=== PATIENT | female | born 1970 | race Caucasian/White ===

== ENCOUNTER 2017-11-25 11:24 | Emergency (ER) | payer BC, OTHER ==
[2017-11-25] MEDS ORDERED: ORPHENADRINE 30 MG/ML 2 ML VIAL IVP STA (11:34)
[2017-11-25] MEDS ORDERED: KETOROLAC 30 MG/ML 1 ML VIAL IVP STA (11:34)
--- NOTE | 2017-11-25 11:38 | ED ---
Fall HPI - General Chief Complaint: Fall Stated Complaint: fall/back pain Time Seen by Provider: 11/25/17 11:24 Source: patient Mode of arrival: EMS - History of Present Illness Initial Comments: This is a 47-year-old female who states she slipped on steps over carpeted and landed on her buttock and slid down about 8 steps prior to admission no loss of consciousness she does not believe she had she struck her head that she does have a bit of a headache no neck pain just complains some midthoracic back pain and some upper lumbar pain. She has a prior history of spinal surgery in 2009. She was given IV fentanyl and route the pain was 10/10 and get somewhat better until arrival here. She was on a backboard with cervical immobilization. She denies a loss of function to her upper or lower extremities no abdominal pain no pelvic pain. MD Complaint: fall - Related Data Home Medications Medication Instructions Recorded Confirmed Empagliflozin [Jardiance] 10 mg PO QAM 11/25/17 11/25/17 Glucosamine/Chondr Rebolledo A Sod [Osteo 1 tab PO DAILY 11/25/17 11/25/17 Bi-Flex Caplet] Lisinopril-Hctz 10-12.5 mg 1 tab PO DAILY 11/25/17 11/25/17 [Zestoretic 10-12.5] Montelukast Sodium [Singulair] 10 mg PO HS 11/25/17 11/25/17 Multivitamins, Thera [Multivitamin 1 tab PO DAILY 11/25/17 11/25/17 (formulary)] sitaGLIPtin PHOS/metFORMIN HCL 1 tab PO BID 11/25/17 11/25/17 [Janumet 50-1,000 mg Tablet] Previous Rx's Medication Instructions Recorded Cyclobenzaprine [Flexeril] 10 mg PO TID #14 tab 11/25/17 Hydrocodone/Acetaminophen [[place] 1 each PO Q6HR PRN #20 tab 11/25/17 5-325] Ibuprofen 800 mg PO Q6HR PRN #20 tablet 11/25/17 predniSONE 20 mg PO BID #10 tab 11/25/17 Allergies Allergy/AdvReac Type Severity Reaction Status Date / Time No Known Allergies Allergy Verified 11/25/17 12:13 Review of Systems ROS Statement: Those systems with pertinent positive or pertinent negative responses have been documented in the HPI. ROS Other: All systems not noted in ROS Statement are negative. Past Medical History Past Medical History: Hypertension Additional Past Medical History / Comment(s): Pre diabetes History of Any Multi-Drug Resistant Organisms: None Reported Past Surgical History: Ablation, Back Surgery, Section, Cholecystectomy Past Psychological History: No Psychological Hx Reported Smoking Status: Never smoker Past Alcohol Use History: None Reported Past Drug Use History: None Reported General Exam - General Exam Comments Initial Comments: This is a well-developed well-nourished awake alert oriented 3 female she has a [place] Coma Scale of 15. She was immobilized on a backboard with cervical immobilization. Limitations: no limitations General appearance: alert Head exam: Present: atraumatic, normocephalic, normal inspection Eye exam: Present: normal appearance, PERRL, EOMI. Absent: scleral icterus, conjunctival injection, periorbital swelling ENT exam: Present: normal exam, mucous membranes moist Neck exam: Present: normal inspection. Absent: tenderness, meningismus, lymphadenopathy Respiratory exam: Present: normal lung sounds bilaterally. Absent: respiratory distress, wheezes, rales, rhonchi, stridor Cardiovascular Exam: Present: regular rate, normal rhythm, normal heart sounds. Absent: systolic murmur, diastolic murmur, rubs, gallop, clicks GI/Abdominal exam: Present: soft, normal bowel sounds, other (Obese abdomen). Absent: distended, tenderness, guarding, rebound, rigid, bruit, pulsatile mass, hernia Rectal exam: Present: deferred Extremities exam: Present: normal inspection, full ROM, normal capillary refill. Absent: tenderness, pedal edema, joint swelling, calf tenderness Back exam: Present: normal inspection, tenderness, muscle spasm, paraspinal tenderness, rash noted (No cervical spinous process tenderness or tenderness palpation of the paraspinous muscles however especially between his scapula and the upper lumbar spine. No step-off or crepitation.). Absent: CVA tenderness ( R), CVA tenderness (L), vertebral tenderness Neurological exam: Present: alert, oriented X3, CN II-XII intact Psychiatric exam: Present: normal affect, normal mood Skin exam: Present: warm, dry, intact, normal color. Absent: rash Course Vital Signs 11/25/17 11/25/17 11:25 12:43 Temperature 97.8 F Pulse Rate 103 H 90 Respiratory 22 16 Rate Blood Pressure 143/80 137/76 O2 Sat by Pulse 97 98 Oximetry Medical Decision Making - Medical Decision Making Patient is finally get some relief from her pain would like to be sent home with oral medication she has no new findings and doesn't fact feel better. She is a follow-up with her family doctor or Dr. Mason and return when necessary - Radiology Data Radiology results: report reviewed (I did review the imaging and reports evidence of degenerative changes but no acute findings.), image reviewed Disposition Clinical Impression: Fall, Thoracic myofascial strain, Lumbar strain Disposition: HOME SELF-CARE Condition: Good Instructions: Low Back Strain (ED), Thoracic Back Strain (ED) Prescriptions: Cyclobenzaprine [Flexeril] 10 mg PO TID #14 tab Hydrocodone/Acetaminophen [[place] 5-325] 1 each PO Q6HR PRN #20 tab PRN Reason: Pain Ibuprofen 800 mg PO Q6HR PRN #20 tablet PRN Reason: Pain predniSONE 20 mg PO BID #10 tab Referrals: Ashley Riggs MD [Primary Care Provider] - 1-2 days
--- NOTE | 2017-11-25 13:08 | CT ---
EXAMINATION TYPE: CT thor lumbar spine wo con DATE OF EXAM: 11/25/2017 COMPARISON: NONE HISTORY: Patient complains of mid to low back pain post fall down stairs today. CT DLP: 1197 mGycm Automated exposure control for dose reduction was used. FINDINGS: Visualized portions of the lungs are clear. There is no significant pleural fluid. There is a small hiatal hernia. Prevertebral soft tissues are otherwise unremarkable. There is been a previous interpedicular fusion at L5-S1. There is a grade 1 spondylolisthesis of L5 o n S1. There is mild wedging of the T11 and T12 vertebral bodies. This appears chronic. No acute fracture is seen. There is hypertrophic spondylosis and spondylosis deformans within the dorsal spine and upper lumbar spine. No acute fracture is seen. IMPRESSION: 1. NO ACUTE OSSEOUS LESION. 2. POSTSURGICAL CHANGE. 3. SMALL HIATAL HERNIA. 4. MILD WEDGING OF THE T11 AND T12 VERTEBRAL BODIES WHICH APPEARS CHRONIC.
[2017-11-25] MEDS ORDERED: MORPHINE SULFATE 4 MG/ML SYRINGE IVP STA (13:14)
[2017-11-25] MEDS ORDERED: methylPREDNISolone SOD SUCCI 125 MG/2 ML VIAL IV STA (13:15)
[2017-11-25 14:07] VITALS: BP 123/63; PULSE 105; RESP 18; TEMP 98
== END 2017-11-25 14:05 | disposition home or self-care (01) ==
LOC: EC 11:24
DX: S29.012A Strain of muscle and tendon of back wall of thorax, initial encounter (principal); S39.012A Strain of muscle, fascia and tendon of lower back, initial encounter; R21 Rash and other nonspecific skin eruption; R40.2412 Glasgow coma scale score 13-15, at arrival to emergency department; I10 Essential (primary) hypertension; Z98.890 Other specified postprocedural states; Z79.84 Long term (current) use of oral hypoglycemic drugs; Z79.899 Other long term (current) drug therapy; W10.9XXA Fall (on) (from) unspecified stairs and steps, initial encounter
CPT/HCPCS: 99284; 96374; 96375 ×3; 72128; 72131; J2270; J2360; J2930; J1885

== ENCOUNTER 2018-12-09 11:56 | Observation (INO) | payer BC ==
[2018-12-09] MEDS ORDERED: HYDROmorphone 1 MG/ML 1 ML SYRINGE IVP STA (13:11)
[2018-12-09] MEDS ORDERED: KETOROLAC 30 MG/ML 1 ML VIAL IVP STA (13:11)
[2018-12-09] MEDS ORDERED: ONDANSETRON 4 MG/2 ML VIAL IVP STA ×2 (13:11→14:58)
[2018-12-09] MEDS ORDERED: SODIUM CHLORIDE 0.9% 2,000 ML IV ONE (13:27)
[2018-12-09 13:37] LABS: ALT 52 U/L (9-52); AST 62 U/L (14-36); Albumin 3.7 g/dL (3.5-5.0); Alkaline Phosphatase 86 U/L (38-126); Amylase 79 U/L (30-110); Anion Gap 7 mmol/L; Blood Urea Nitrogen 12 mg/dL (7-17); Calcium 9.2 mg/dL (8.4-10.2); Carbon Dioxide 25 mmol/L (22-30); Chloride 108 mmol/L (98-107); Glucose 174 mg/dL (74-99); Lipase 479 U/L (23-300); Sodium 140 mmol/L (137-145); Total Bilirubin 1.6 mg/dL (0.2-1.3); Total Protein 7.4 g/dL (6.3-8.2)
[2018-12-09 13:41] LABS: Basophils % (A) 1 %; Eosinophils # (A) 0.2 k/uL (0-0.7); Eosinophils % (A) 4 %; HCT 38.4 % (34.0-46.0); HGB 12.8 gm/dL (11.4-16.0); Lymphocytes # (A) 1.1 k/uL (1.0-4.8); Lymphocytes % (A) 22 %; MCH 30.8 pg (25.0-35.0); MCHC 33.3 g/dL (31.0-37.0); MCV 92.7 fL (80.0-100.0); Mean Platelet Volume 8.2; Monocytes # (A) 0.3 k/uL (0-1.0); Monocytes % (A) 6 %; Neutrophils # (A) 3.2 k/uL (1.3-7.7); Neutrophils % (A) 64 %; Platelet Count 116 k/uL (150-450); RBC 4.15 m/uL (3.80-5.40); RDW 14.1 % (11.5-15.5); WBC 4.9 k/uL (3.8-10.6)
--- NOTE | 2018-12-09 13:47 | ED ---
Abdominal Pain HPI - General Source: patient, RN notes reviewed, old records reviewed Mode of arrival: ambulatory Limitations: no limitations <Asha Brooke - Last Filed: 12/09/18 16:07> <Davian Hale - Last Filed: 12/09/18 16:20> - General Chief Complaint: Abdominal Pain Stated Complaint: abdominal pain Time Seen by Provider: 12/09/18 12:17 - History of Present Illness Initial Comments: This patient's a 48-year-old female presents emergency Department chief complaint of diffuse abdominal pain, distention, nausea for the past 3 days. She reports symptoms woke her up on Sunday evening. Surgical history includes cholecystectomy, C-sections, uterine ablation. Patient poor she feels some lower abdominal pain, just started with. Patient states that she sees Dr. Avery HERB DOCTOR. No vomiting. (Asha Brooke) - Related Data Home Medications Medication Instructions Recorded Confirmed Empagliflozin [Jardiance] 10 mg PO QAM 11/25/17 12/09/18 Glucosamine/Chondr Rebolledo A Sod [Osteo 1 tab PO DAILY 11/25/17 12/09/18 Bi-Flex Caplet] Lisinopril-Hctz 10-12.5 mg 1 tab PO DAILY 11/25/17 12/09/18 [Zestoretic 10-12.5] Montelukast Sodium [Singulair] 10 mg PO HS 11/25/17 12/09/18 Cyanocobalamin (Vitamin B-12) 1,000 mcg PO HS 12/09/18 12/09/18 [Vitamin B-12] Liraglutide [Victoza 3-Luis] 1.2 mg SQ DAILY 12/09/18 12/09/18 Magnesium Oxide [Mag-Ox] 250 mg PO HS 12/09/18 12/09/18 Melatonin 10 mg PO HS 12/09/18 12/09/18 Milk Thistle 150 mg PO HS 12/09/18 12/09/18 Potassium 99 mg PO HS 12/09/18 12/09/18 metFORMIN HCL 1,000 mg PO BID 12/09/18 12/09/18 Allergies Allergy/AdvReac Type Severity Reaction Status Date / Time brompheniramine AdvReac Rapid Verified 12/09/18 12:19 [From Dimetapp Heart Rate (brompheniramine-PPA)] diphenhydramine AdvReac Rapid Verified 12/09/18 12:19 [From Benadryl] Heart Rate phenylpropanolamine AdvReac Rapid Verified 12/09/18 12:19 [From Dimetapp Heart Rate (brompheniramine-PPA)] Review of Systems ROS Other: All systems not noted in ROS Statement are negative. <Asha Brooke - Last Filed: 12/09/18 16:07> ROS Other: All systems not noted in ROS Statement are negative. <Davian Hale - Last Filed: 12/09/18 16:20> ROS Statement: Those systems with pertinent positive or pertinent negative responses have been documented in the HPI. Past Medical History Past Medical History: Hypertension Additional Past Medical History / Comment(s): Pre diabetes History of Any Multi-Drug Resistant Organisms: None Reported Past Surgical History: Ablation, Back Surgery, Section, Cholecystectomy Past Psychological History: No Psychological Hx Reported Smoking Status: Never smoker Past Alcohol Use History: None Reported Past Drug Use History: None Reported <Asha Brooke - Last Filed: 12/09/18 16:07> General Exam Limitations: no limitations General appearance: alert, in no apparent distress Head exam: Present: atraumatic, normocephalic, normal inspection Eye exam: Present: normal appearance, PERRL, EOMI. Absent: scleral icterus, conjunctival injection, periorbital swelling ENT exam: Present: normal exam, mucous membranes moist Neck exam: Present: normal inspection. Absent: tenderness, meningismus, lymphadenopathy Respiratory exam: Present: normal lung sounds bilaterally. Absent: respiratory distress, wheezes, rales, rhonchi, stridor Cardiovascular Exam: Present: regular rate GI/Abdominal exam: Present: distended, tenderness (Diffuse distention and tenderness over her entire abdomen.), normal bowel sounds. Absent: soft, guarding, rebound, rigid Extremities exam: Present: normal inspection, full ROM, normal capillary refill. Absent: tenderness, pedal edema, joint swelling, calf tenderness Back exam: Present: normal inspection Neurological exam: Present: alert, oriented X3, CN II-XII intact Psychiatric exam: Present: normal affect, normal mood Skin exam: Present: warm, dry, intact, normal color. Absent: rash <Asha Brooke - Last Filed: 12/09/18 16:07> <Davian Hale - Last Filed: 12/09/18 16:20> - General Exam Comments Initial Comments: 48-year-old female. Alert and oriented. No distress. (Asha rBooke) Vital Signs 12/09/18 12/09/18 12/09/18 11:59 13:00 13:30 Temperature 98.7 F Pulse Rate 103 H Respiratory 18 Rate Blood Pressure 130/78 115/67 107/67 O2 Sat by Pulse 97 97 96 Oximetry 12/09/18 12/09/18 12/09/18 14:00 14:30 15:00 Temperature Pulse Rate Respiratory Rate Blood Pressure 114/58 105/67 100/54 O2 Sat by Pulse 98 97 Oximetry 12/09/18 15:30 Temperature Pulse Rate Respiratory Rate Blood Pressure 107/65 O2 Sat by Pulse 97 Oximetry Medical Decision Making - Lab Data Result diagrams: 12/09/18 12:25 12/09/18 12:25 - Radiology Data Radiology results: report reviewed <Asha Brooke - Last Filed: 12/09/18 16:07> - Lab Data Result diagrams: 12/09/18 12:25 12/09/18 12:25 <Davian Hale - Last Filed: 12/09/18 16:20> - Medical Decision Making Patient is a 48-year-old female with 4 days of diffuse abdominal pain and distention. Patient has diffuse lower abdominal pain. She was given IV fluids labwork obtained. Patient's lab work was reviewed and relatively unremarkable. CT of the pelvis was completed and there is evidence of suspected cirrhosis with portal hypertension and splenomegaly. She denies any significant alcohol use. Is also noted 6.2 C ovarian lesion. Follow-up ultrasound. She does see Dr. Harris. I did discuss the family and Patient that this is concerned for possibility of any ovarian mass. She will be admitted with consult to GI and OB /IC DESIGN MANAGER. (Asha Brooke) Patient reevaluated by myself, Dr. Hale. Patient resting comfortably in bed. Patient does have mild distention/ascites with moderate tenderness of the lower abdomen. Patient updated on results and plan. Case was discussed in detail with Dr. Marroquin, who will admit covering for Dr. Riggs. Consults will be placed for GI, HERB DOCTOR, and oncology. Case was also discussed in detail with Dr. Barraza, who will consult. (Davian Hale) - Lab Data Lab Results 12/09/18 12/09/18 12/09/18 Range/Units 12:25 12:25 12:25 WBC 4.9 (3.8-10.6) k/uL RBC 4.15 (3.80-5.40) m/uL Hgb 12.8 (11.4-16.0) gm/dL Hct 38.4 (34.0-46.0) % MCV 92.7 (80.0-100.0) fL MCH 30.8 (25.0-35.0) pg MCHC 33.3 (31.0-37.0) g/dL RDW 14.1 (11.5-15.5) % Plt Count 116 L (150-450) k/uL Neutrophils % 64 % Lymphocytes % 22 % Monocytes % 6 % Eosinophils % 4 % Basophils % 1 % Neutrophils # 3.2 (1.3-7.7) k/uL Lymphocytes # 1.1 (1.0-4.8) k/uL Monocytes # 0.3 (0-1.0) k/uL Eosinophils # 0.2 (0-0.7) k/uL Basophils # 0.0 (0-0.2) k/uL PT 10.4 (9.0-12.0) sec INR 1.0 (<1.2) APTT 25.5 (22.0-30.0) sec Sodium 140 (137-145) mmol/L Potassium 4.3 (3.5-5.1) mmol/L Chloride 108 H (98-107) mmol/L Carbon Dioxide 25 (22-30) mmol/L Anion Gap 7 mmol/L BUN 12 (7-17) mg/dL Creatinine 0.55 (0.52-1.04) mg/dL Est GFR (CKD-EPI)AfAm >90 (>60 ml/min/1.73 sqM) Est GFR (CKD-EPI)NonAf >90 (>60 ml/min/1.73 sqM) Glucose 174 H (74-99) mg/dL Calcium 9.2 (8.4-10.2) mg/dL Total Bilirubin 1.6 H (0.2-1.3) mg/dL AST 62 H (14-36) U/L ALT 52 (9-52) U/L Alkaline Phosphatase 86 (38-126) U/L Total Protein 7.4 (6.3-8.2) g/dL Albumin 3.7 (3.5-5.0) g/dL Amylase 79 (30-110) U/L Lipase 479 H (23-300) U/L Urine Color Urine Appearance (Clear) Urine pH (5.0-8.0) Ur Specific [place] (1.001-1.035) Urine Protein (Negative) Urine Glucose (UA) (Negative) Urine Ketones (Negative) Urine Blood (Negative) Urine Nitrite (Negative) Urine Bilirubin (Negative) Urine Urobilinogen (<2.0) mg/dL Ur Leukocyte Esterase (Negative) Urine RBC (0-5) /hpf Urine WBC (0-5) /hpf Ur Squamous Epith Cells (0-4) /hpf Urine Mucus (None) /hpf 12/09/18 Range/Units 15:16 WBC (3.8-10.6) k/uL RBC (3.80-5.40) m/uL Hgb (11.4-16.0) gm/dL Hct (34.0-46.0) % MCV (80.0-100.0) fL MCH (25.0-35.0) pg MCHC (31.0-37.0) g/dL RDW (11.5-15.5) % Plt Count (150-450) k/uL Neutrophils % % Lymphocytes % % Monocytes % % Eosinophils % % Basophils % % Neutrophils # (1.3-7.7) k/uL Lymphocytes # (1.0-4.8) k/uL Monocytes # (0-1.0) k/uL Eosinophils # (0-0.7) k/uL Basophils # (0-0.2) k/uL PT (9.0-12.0) sec INR (<1.2) APTT (22.0-30.0) sec Sodium (137-145) mmol/L Potassium (3.5-5.1) mmol/L Chloride (98-107) mmol/L Carbon Dioxide (22-30) mmol/L Anion Gap mmol/L BUN (7-17) mg/dL Creatinine (0.52-1.04) mg/dL Est GFR (CKD-EPI)AfAm (>60 ml/min/1.73 sqM) Est GFR (CKD-EPI)NonAf (>60 ml/min/1.73 sqM) Glucose (74-99) mg/dL Calcium (8.4-10.2) mg/dL Total Bilirubin (0.2-1.3) mg/dL AST (14-36) U/L ALT (9-52) U/L Alkaline Phosphatase (38-126) U/L Total Protein (6.3-8.2) g/dL Albumin (3.5-5.0) g/dL Amylase (30-110) U/L Lipase (23-300) U/L Urine Color Yellow Urine Appearance Clear (Clear) Urine pH 6.0 (5.0-8.0) Ur Specific [place] 1.050 H (1.001-1.035) Urine Protein Negative (Negative) Urine Glucose (UA) 4+ H (Negative) Urine Ketones Negative (Negative) Urine Blood Negative (Negative) Urine Nitrite Negative (Negative) Urine Bilirubin Negative (Negative) Urine Urobilinogen 3.0 (<2.0) mg/dL Ur Leukocyte Esterase Small H (Negative) Urine RBC 12 H (0-5) /hpf Urine WBC 4 (0-5) /hpf Ur Squamous Epith Cells 6 H (0-4) /hpf Urine Mucus Rare H (None) /hpf - Radiology Data CT shows suspect cirrhosis with underlying portal hypertension and splenomegaly. Minimal abdominal ascites is noted. There is a 6.2 cm right ovarian adnexal lesion following up with ultrasound formed. (Asha Brooke) Disposition Is patient prescribed a controlled substance at d/c from ED?: No Time of Disposition: 16:10 <Asha Brooke - Last Filed: 12/09/18 16:07> <Davian Hale - Last Filed: 12/09/18 16:20> Clinical Impression: Ovarian mass, right, Ascites, Portal hypertension, Splenomegaly Disposition: ADMITTED IP TO THIS HOSP Condition: Stable Referrals: Ashley Riggs MD [Primary Care Provider] - 1-2 days
[2018-12-09 13:48] LABS: Partial Thromboplastin Time 25.5 sec (22.0-30.0); Prothrombin Time 10.4 sec (9.0-12.0)
[2018-12-09 13:56] LABS: Potassium 4.3 mmol/L (3.5-5.1)
--- NOTE | 2018-12-09 14:35 | CT ---
EXAMINATION TYPE: CT abdomen pelvis w con DATE OF EXAM: 12/09/2018 HISTORY: Abdominal pain CT DLP: 2460.4mGycm Automated Exposure Control for Dose Reduction was Utilized. CONTRAST: CT scan of the abdomen and pelvis is performed without oral but with IV Contrast, patient injected wi th 100 ml mL of Isovue 300. Comparison: CT spine November 25, 2017. FINDINGS: LUNG BASES: No significant abnormality is appreciated. LIVER/GB: Cholecystectomy clips are present. Liver is lower limits of normal in size with lobulated p eripheral nodular contour. PANCREAS: No significant abnormality is seen. SPLEEN: Splenomegaly is seen measuring 19.0 cm long axis axial image 27. ADRENALS: No significant abnormality is seen. KIDNEYS: Some focal cortical scarring right kidney is present. There is symmetric cortical medullary uptake and excretion from both kidneys without hydronephrosis seen bilaterally. BOWEL: Evaluation bowel is suboptimal secondary to lack of enteric contrast. No suspicious small or l arge bowel dilatation is seen. UTERUS/ADNEXA: Anteverted uterus is seen. Right ovary is 6.2 cm oval low dense lesion with perhaps an terior solid nodularity. Left ovary is normal in size on axial image 70. Scattered pelvic phleboliths are noted. LYMPH NODES: No greater than 1cm abdominal or pelvic lymph nodes are appreciated. Prominent but subce ntimeter lymph nodes throughout the mesentery are seen with mild mesenteric edema most prominent near small bowel loop coronal image 44 in the mid to lower abdomen OSSEOUS STRUCTURES: Posterior fusion hardware L5-S1 level is redemonstrated with artificial disc mate rial. OTHER: Mild ascites left pericolic and infracolic gutter. Mild ascites superior to liver coronal imag e 42. IMPRESSION: 1. Suspect cirrhosis with underlying portal hypertension and splenomegaly is present, correlate clini shaquille. Mild to minimal abdominal ascites is noted as detailed above. 2. A 6.2 cm right ovarian/adnexal lesion, follow-up pelvic ultrasound can be performed to better eval uate and characterize.
[2018-12-09 15:51] LABS: Appearance,Urine Clear (Clear); Bilirubin,Urine Negative (Negative); Blood,Urine Negative (Negative); Color,Urine Yellow; Glucose,Urine (UA) 4+ (Negative); Ketones,Urine Negative (Negative); Leukocyte Esterase,Urine Small (Negative); Mucus,Urine Rare /hpf; Nitrite,Urine Negative (Negative); Protein,Urine Negative (Negative); RBC,Urine 12 /hpf (0-5); Squamous Epithelial Cell,Urine 6 /hpf (0-4); WBC,Urine 4 /hpf (0-5)
[2018-12-09] MEDS ORDERED: NALOXONE 0.4 MG/ML 1 ML VIAL IV PRN (16:10)
[2018-12-09] MEDS ORDERED: IBUPROFEN 400 MG TAB PO PRN (16:10)
[2018-12-09] MEDS ORDERED: HYDROmorphone 1 MG/ML 1 ML SYRINGE IVP PRN (16:10)
[2018-12-09] MEDS ORDERED: ONDANSETRON 4 MG/2 ML VIAL IVP PRN (16:10)
[2018-12-09] MEDS ORDERED: ACETAMINOPHEN TAB 325 MG TAB PO PRN (16:10)
[2018-12-09] MEDS ORDERED: Acetaminophen-Codeine 300-30mg TAB PO PRN (16:10)
[2018-12-09] MEDS: SODIUM CHLORIDE 0.9% 1,000 ML IV SCH (16:47)
--- NOTE | 2018-12-09 17:01 | US ---
EXAMINATION TYPE: US transvaginal DATE OF EXAM: 12/09/2018 COMPARISON: NONE CLINICAL HISTORY: Pain. RLQ pain TECHNIQUE: TA/TV. Date of LMP: ablation EXAM MEASUREMENTS: Uterus: 12.6 x 5.4 x 5.2 cm Endometrial Stripe: 0.7 cm Right Ovary: 5.2 x 6.4 x 6.7 cm Left Ovary: 3.8 x 2.7 x 3.0 cm Large body habitus that made TV imaging difficult, TA used to supplement study. 1. Uterus: Anteverted wnl 2. Endometrium: wnl 3. Right Ovary: only seen transabdominally, 5.5cm complex lesion seen, unable to truly assess blood flow, difficult penetrating due to patient size. 4. Left Ovary: 2.2cm cystic area seen Spectral, color and waveform doppler imaging shows good arterial and venous flow within the left ov felix, there is no evidence for ovarian torsion on the left. 5. Bilateral Adnexa: wnl 6. Posterior cul-de-sac: wnl IMPRESSION: Complex large cyst on the right ovary. Follow-up is recommended to show stability or jaime ring. Normal uterus and endometrium. No evidence of ovarian torsion.
[2018-12-09 17:22] VITALS: BMI 47.0
[2018-12-09] MEDS ORDERED: ALPRAZolam 0.25 MG TAB PO PRN (18:03)
[2018-12-09] MEDS ORDERED: HYDROcodone/APAP 5-325MG 1 EACH TAB PO PRN (18:03)
[2018-12-09] MEDS ORDERED: TEMAZEPAM 15 MG CAP PO PRN (18:03)
[2018-12-09] MEDS: KETOROLAC 30 MG/ML 1 ML VIAL IVP PRN (19:12)
--- NOTE | 2018-12-09 19:21 | HP ---
HISTORY AND PHYSICAL DATE OF SERVICE: 12/09/2018 CHIEF COMPLAINT: Abdominal pain. HISTORY OF PRESENT ILLNESS: This 48-year-old woman with a past medical history of diabetes, hypertension, sleep apnea, history of prediabetes, history of back surgery being followed by Dr. Riggs in the outpatient setting apparently had a sudden onset of abdominal pain on Sunday at 1 o'clock. The abdominal pain is felt in the lower part of the chest radiating across without any other symptoms. Patient is rather constipated. Patient also had a fall on the ice earlier that day according to her. Because of increasing pain, patient presented to Dr. Riggs's office and subsequently sent to [facility] for further evaluation and treatment. Abdomen and pelvis CAT scan was done showed a 6.2 cm right ovarian adnexal mass and suspected cirrhosis with underlying portal hypertension and splenomegaly. Mild to minimal abdominal ascites was also noted. There is no history of fever, rigors or chills. No history of headache, loss of consciousness or seizures. The patient also had a pelvic transvaginal ultrasound which showed a 5.5 cm complex lesion was noted. Complex lesion was noted and the patient admitted for further evaluation. There is no history of fever, rigors. No history of headache, loss of consciousness. No history EtOH. No history of weight gain/weight loss. PAST MEDICAL: Diabetes, hypertension, sleep apnea, prediabetes, history of ablation, back surgeries and section and cholecystectomy. MEDICATIONS ARE: Home medications include: 1. Magnesium oxide 250 mg p.o. daily. 2. Vitamin B12 1000 mg daily. 3. Potassium 99 mg p.o. daily. 4. Milk thistle 150 mg q.h.s. 5. Melatonin 10 mg q.h.s. 6. Victoza 1.2 subcu daily. 7. Metformin 1000 mg p.o. b.i.d. 8. Singular 10 mg q.h.s. 9. Zestoretic 1 tablet p.o. daily. 10.Osteobioflex 1 tablet p.o. daily. 11.Jardiance 10 mg q.a.m. ALLERGIES: BROMPHENIRAMINE, DIPHENHYDRAMINE, AND PHENYLPROPANOLAMINE. FAMILY HISTORY: History of coronary artery disease, diabetes in the family. SOCIAL HISTORY: Previous history of smoking. No history of alcohol intake. REVIEW OF SYSTEMS: ENT: No diminished hearing or diminished vision. CARDIOVASCULAR: No angina or palpitations. RESPIRATORY: No cough. GI as mentioned earlier. : As mentioned earlier. NERVOUS SYSTEM: No numbness or weakness. ALLERGY/IMMUNOLOGY: No asthma or hayfever. MUSCULOSKELETAL as mentioned earlier. HEMATOLOGY/ONCOLOGY: No history of anemia. ENDOCRINE: Diabetes mellitus. CONSTITUTIONAL: As mentioned earlier. Dermatology: Negative. Rheumatology: Negative. Psychiatry: As mentioned earlier. PHYSICAL EXAMINATION: GENERAL: The patient is alert and oriented times three. VITAL SIGNS: Pulse 89, blood pressure 104/60, respiration 18, temperature 98 degrees, pulse ox 98% on room air. HEENT: Conjunctivae normal. Oral mucosa moist. NECK: Neck is no jugular venous distention. No carotid bruit. No lymph node enlargement. CARDIOVASCULAR: S1-S2. RESPIRATORY: Breath sounds diminished in the bases. No rhonchi. No crackles. ABDOMEN: Soft, obese, mild diffuse discomfort on palpation. Otherwise, no guarding, no rigidity. No mass palpable. Legs no edema. No swelling. NERVOUS SYSTEM: Higher functions as mentioned earlier. Moves all four extremities. No focal deficits. LYMPHATICS: No lymph nodes palpable in the neck, axilla or groin. Skin: No ulcer, rash or bleeding. JOINTS: No active deforming arthropathy. LABS: WBC 4.9. Platelets are 116. Chloride is 108. Glucose is 174. Total bilirubin is 1.6, AST is 62, lipase is 479. ASSESSMENT: 1. Abdominal pain for evaluation, possible ovarian mass, right ovarian mass. 2. Possible cirrhosis of liver with splenomegaly. 3. Increased amylase. 4. Increased total bilirubin with increased AST. 5. Diabetes mellitus type 2. 6. Thrombocytopenia. 7. Hypertension. 8. Sleep apnea. 9. History of ablation. 10.History of back pain. 11.History of section. RECOMMENDATIONS AND DISCUSSION: In this 48-year-old woman who presented with multiple complex medical issues, we will monitor the patient closely, continue the current medications, management and symptomatic treatment. Otherwise, at this time, we will repeat the labs. Monitor closely. The exact etiology of the ovarian mass is unknown at this time. We will consult Hematology/Oncology and as well as PAVING AND SURFACING LABOURER. Again there is no past history of hepatitis or other liver related issues. I would recommend hepatitis panel and repeat labs and continue to monitor. The CT scan was personally reviewed by me and the patient liver was lobulated, nodular contour was noted. Overall prognosis guarded because of multiple complex medical issues, which I discussed at length with the family and the patient and we will continue to monitor and proceed with consultations and further evaluations. Copy of dictation forwarded to Dr. Riggs, who is the primary physician. Resume the home medications. MMODL / IJN: [id number] / MTDD
[2018-12-09 19:29] LABS: Basophils % (A) 0 %; Eosinophils # (A) 0.1 k/uL (0-0.7); Eosinophils % (A) 3 %; HCT 36.4 % (34.0-46.0); HGB 11.7 gm/dL (11.4-16.0); Lymphocytes # (A) 0.7 k/uL (1.0-4.8); Lymphocytes % (A) 18 %; MCH 30.6 pg (25.0-35.0); MCHC 32.2 g/dL (31.0-37.0); Mean Platelet Volume 6.7; Monocytes # (A) 0.2 k/uL (0-1.0); Monocytes % (A) 6 %; Neutrophils % (A) 72 %; RBC 3.83 m/uL (3.80-5.40); RDW 14.3 % (11.5-15.5); WBC 4.1 k/uL (3.8-10.6)
[2018-12-09 19:30] LABS: Platelet Count 85 k/uL (150-450)
[2018-12-09 19:34] LABS: Anion Gap 6 mmol/L; Blood Urea Nitrogen 12 mg/dL (7-17); Calcium 8.4 mg/dL (8.4-10.2); Carbon Dioxide 24 mmol/L (22-30); Chloride 108 mmol/L (98-107); Glucose 191 mg/dL (74-99); Potassium 4.1 mmol/L (3.5-5.1); Sodium 138 mmol/L (137-145)
[2018-12-09] MEDS: MAGNESIUM OXIDE 400 MG TAB PO SCH (20:37)
[2018-12-09] MEDS: HEPARIN SODIUM,PORCINE 5,000 UNIT/ML 1 ML VIAL SQ SCH (20:37)
[2018-12-09] MEDS: MONTELUKAST 10 MG TAB PO SCH (20:37)
[2018-12-09] MEDS: MELATONIN 5 MG TABLET PO SCH (20:37)
[2018-12-09] MEDS: HYDROmorphone 0.5 MG/0.5 ML SYRINGE IVP PRN (20:37)
[2018-12-09] MEDS: metFORMIN 500 MG TAB PO SCH (20:37)
[2018-12-09] MEDS ORDERED: NON-FORMULARY DRUG (Potassium [Potassium] 99 MG) PO SCH (21:00)
[2018-12-09 23:34] LABS: Hepatitis A Antibody IgM Non-Reactive (Non-Reactive); Hepatitis B Core IgM Non-Reactive (Non-Reactive)
[2018-12-10] MEDS: KETOROLAC 30 MG/ML 1 ML VIAL IVP PRN (01:39)
[2018-12-10] MEDS: HYDROmorphone 0.5 MG/0.5 ML SYRINGE IVP PRN (02:40)
[2018-12-10] MEDS: SODIUM CHLORIDE 0.9% 1,000 ML IV SCH (02:41)
[2018-12-10 04:23] LABS: Hemoglobin A1C 6.6 % (4.0-6.0)
[2018-12-10] MEDS: metFORMIN 500 MG TAB PO SCH ×2 (08:32→23:12)
[2018-12-10] MEDS: LISINOPRIL-HCTZ 10-12.5 MG 1 EACH TAB PO SCH (08:32)
[2018-12-10] MEDS: HEPARIN SODIUM,PORCINE 5,000 UNIT/ML 1 ML VIAL SQ SCH ×2 (08:34→23:13)
[2018-12-10] MEDS: EMPAGLIFLOZIN 10 MG PO SCH (08:47)
[2018-12-10] MEDS: LIRAGLUTIDE 1.2 MG SQ SCH (08:47)
[2018-12-10] MEDS ORDERED: PANTOPRAZOLE 40 MG/10 ML VIAL IV SCH (09:00)
[2018-12-10] MEDS ORDERED: NON-FORMULARY DRUG (Glucosamine/Chondr Su A Sod [Osteo Bi-Flex Caplet] 1 TAB) PO SCH (09:00)
--- NOTE | 2018-12-10 09:20 | P.OBCN ---
History of Present Illness Consult date: 12/10/18 Requesting physician: Matias Marroquin Reason for consult: pelvic mass, other (Abdominal pain) Chief complaint: Acute abdominal pain, 5+ centimeter right ovarian cyst History of present illness: The patient is a 48-year-old 3 para 2011 who presented to the emergency room department with onset of abdominal pain beginning acutely in the pelvis, specifically the right lower quadrant approximately 2 days prior to presentation. The pain that it initially begun on the right lower quadrant then spread more diffusely into the abdomen and left her with a sense of bloating and generalized discomfort. She did initially have some nausea and reports some short-term constipation with her last normal bowel movement being approximately 4 days ago. In the emergency room, she underwent computed tomography scan of the abdomen and pelvis which demonstrated a 6.2 cm complex right adnexal mass with some free fluid in the pericolic gutters and possible liver changes consistent with cirrhosis. Subsequent pelvic ultrasound confirmed a roughly 5+ centimeter right ovarian cyst of the mass was not clearly seen and, by report, was seen more effective with with transabdominal scanning then transvaginal. At this time, she continues to have some generalized discomfort and mild anorexia though she is tolerating regular diet. There is no further nausea. As the patient is known to our office, I reviewed a pelvic ultrasound performed in February 2018 at which time the findings in the pelvis were entirely benign with no evidence of any cystic structure or mass on the right ovary and only a simple follicle on the left ovary. The patient has additionally undergone endometrial ablation for menorrhagia and denies any symptoms of menopause to include hot flashes or night sweats. Given her ablation and essentially amenorrhea since that time, she is uncertain as to when her last menstrual period may have been. She reports that she does use condoms consistently for contraception as no permanent control is in place. Obstetrical history: 3 para 2011 with 2 term sections without complications. There was one early miscarriage. Method of contraception is condoms. Gynecologic history: Unremarkable with no history of any infections to include STDs. She did undergo the ultrasound as noted in history of present illness which was entirely normal in February 2018. Review of Systems Review of systems is confined to history of present illness. Past Medical History Past Medical History: Diabetes Mellitus, Hypertension, Sleep Apnea/CPAP/BIPAP Additional Past Medical History / Comment(s): Pre diabetes History of Any Multi-Drug Resistant Organisms: None Reported Past Surgical History: Ablation, Back Surgery, Section, Cholecystectomy Past Psychological History: No Psychological Hx Reported Smoking Status: Never smoker Past Alcohol Use History: None Reported Past Drug Use History: None Reported - Past Family History Father Family Medical History: Coronary Artery Disease (CAD), Diabetes Mellitus Medications and Allergies Home Medications Medication Instructions Recorded Confirmed Type Empagliflozin [Jardiance] 10 mg PO QAM 11/25/17 12/09/18 History Glucosamine/Chondr Rebolledo A Sod [Osteo 1 tab PO DAILY 11/25/17 12/09/18 History Bi-Flex Caplet] Lisinopril-Hctz 10-12.5 mg 1 tab PO DAILY 11/25/17 12/09/18 History [Zestoretic 10-12.5] Montelukast Sodium [Singulair] 10 mg PO HS 11/25/17 12/09/18 History Cyanocobalamin (Vitamin B-12) 1,000 mcg PO HS 12/09/18 12/09/18 History [Vitamin B-12] Liraglutide [Victoza 3-Luis] 1.2 mg SQ DAILY 12/09/18 12/09/18 History Magnesium Oxide [Mag-Ox] 250 mg PO HS 12/09/18 12/09/18 History Melatonin 10 mg PO HS 12/09/18 12/09/18 History Milk Thistle 150 mg PO HS 12/09/18 12/09/18 History Potassium 99 mg PO HS 12/09/18 12/09/18 History metFORMIN HCL 1,000 mg PO BID 12/09/18 12/09/18 History Allergies Allergy/AdvReac Type Severity Reaction Status Date / Time brompheniramine AdvReac Rapid Verified 12/09/18 12:19 [From Dimetapp Heart Rate (brompheniramine-PPA)] diphenhydramine AdvReac Rapid Verified 12/09/18 12:19 [From Benadryl] Heart Rate phenylpropanolamine AdvReac Rapid Verified 12/09/18 12:19 [From Dimetapp Heart Rate (brompheniramine-PPA)] Exam Vital Signs Temp Pulse Pulse Resp BP BP Pulse Ox 12/10/18 05:00 97.9 F 75 16 101/64 94 L 12/09/18 21:00 97.9 F 85 16 106/68 92 L 12/09/18 17:37 98 F 89 18 104/69 96 12/09/18 16:47 98.2 F 88 18 113/50 99 12/09/18 16:30 110/70 97 12/09/18 16:00 103/61 97 12/09/18 15:30 107/65 97 12/09/18 15:00 100/54 12/09/18 14:30 105/67 97 12/09/18 14:00 114/58 98 12/09/18 13:30 107/67 96 12/09/18 13:00 115/67 97 12/09/18 11:59 98.7 F 103 H 18 130/78 97 Intake and Output 12/09/18 12/10/18 12/10/18 22:59 06:59 14:59 Intake Total 1240 1400 Balance 1240 1400 Intake: Intake, IV Titration 160 320 Amount Sodium Chloride 0.9% 1, 160 320 000 ml @ 40 mls/hr IV . Q24H [facility] Rx#:[id number] Oral 1080 1080 Other: Voiding Method Toilet Toilet # Voids 2 4 In general, this is a well-developed, moderately to morbidly obese white female in no acute distress. Her abdomen is obese, nondistended, is soft, with mild diffuse tenderness most prominent in the right lower quadrant. There is no evidence of masses, hepatosplenomegaly, or hernias. There is no guarding or rebound. Her extremities are without any cyanosis, clubbing, or edema and are nontender to palpation bilaterally. Bimanual pelvic examination demonstrates normal external genitalia and BUS with normal vaginal mucosa and cervix to palpation though the uterus is high in the pelvis. There is no cervical motion tenderness. Uterus is approximately 6 weeks' size, midplane, mobile, nontender , normal shape. The adnexa are essentially nonpalpable and nontender without any apparent masses bilaterally. I am unable to appreciate the right adnexal cystic structure. The examination is limited by the patient's abdominal habitus. Results Result Diagrams: 12/09/18 18:53 12/09/18 18:53 Abnormal Lab Results - Last 24 Hours (Table) 12/09/18 12/09/18 12/09/18 Range/Units 12:25 12:25 12:25 Plt Count 116 L (150-450) k/uL Lymphocytes # (1.0-4.8) k/uL Chloride 108 H (98-107) mmol/L Glucose 174 H (74-99) mg/dL Hemoglobin A1c 6.6 H (4.0-6.0) % Total Bilirubin 1.6 H (0.2-1.3) mg/dL AST 62 H (14-36) U/L Lipase 479 H (23-300) U/L Ur Specific [place] (1.001-1.035) Urine Glucose (UA) (Negative) Ur Leukocyte Esterase (Negative) Urine RBC (0-5) /hpf Ur Squamous Epith Cells (0-4) /hpf Urine Mucus (None) /hpf 12/09/18 12/09/18 12/09/18 Range/Units 15:16 18:53 18:53 Plt Count 85 L (150-450) k/uL Lymphocytes # 0.7 L (1.0-4.8) k/uL Chloride 108 H (98-107) mmol/L Glucose 191 H (74-99) mg/dL Hemoglobin A1c (4.0-6.0) % Total Bilirubin (0.2-1.3) mg/dL AST (14-36) U/L Lipase (23-300) U/L Ur Specific [place] 1.050 H (1.001-1.035) Urine Glucose (UA) 4+ H (Negative) Ur Leukocyte Esterase Small H (Negative) Urine RBC 12 H (0-5) /hpf Ur Squamous Epith Cells 6 H (0-4) /hpf Urine Mucus Rare H (None) /hpf Assessment and Plan (1) Abdominal pain Current Visit: Yes Status: Acute Code(s): R10.9 - UNSPECIFIED ABDOMINAL PAIN SNOMED Code(s): 06632942 (2) Ovarian mass, right Current Visit: Yes Status: Acute Code(s): N83.9 - NONINFLAMMATORY DISORD OF OVARY, FALLOP & BROAD LIGMT, [facility] SNOMED Code(s): 504258656 Plan: Given the negative ultrasound last spring and the patient's acuity of onset of symptoms, I suspect this may represent a hemorrhagic ruptured cyst though cannot be certain. It would explain both the acuity of the onset of pain as well as now the diffuse nature of the pain and the evidence of free fluid in the abdomen. This is not to exclude other potential etiologies for her symptoms and GI consultation is warranted. As regards the complex right ovarian cyst, the ultrasound demonstrating no cystic structures less than 1 year ago would favor a benign diagnosis. Nonetheless, OVA1 testing has been ordered to test for the degree of concern for possible malignancy. I would suggest that her acute symptoms be managed and an attempt to be made to control her discomfort with oral pain medications. She otherwise can follow up in the outpatient in our office for further diagnosis and disposition. Should the OVA- 1 demonstrate increased risk for malignancy, PHLEBOTOMY SUPERVISOR oncology consultation will be sought. Should the OVA-1 be negative, disposition will be managed appropriately at that time. We will continue to follow with you. Thank you for the consultation of this very pleasant patient.
[2018-12-10 10:10] LABS: Basophils % (A) 0 %; Eosinophils # (A) 0.2 k/uL (0-0.7); Eosinophils % (A) 4 %; HCT 34.8 % (34.0-46.0); HGB 11.1 gm/dL (11.4-16.0); Lymphocytes # (A) 0.7 k/uL (1.0-4.8); Lymphocytes % (A) 18 %; MCH 30.3 pg (25.0-35.0); MCHC 31.7 g/dL (31.0-37.0); MCV 95.7 fL (80.0-100.0); Mean Platelet Volume 8.2; Monocytes # (A) 0.2 k/uL (0-1.0); Monocytes % (A) 6 %; Neutrophils # (A) 2.9 k/uL (1.3-7.7); Neutrophils % (A) 70 %; RBC 3.64 m/uL (3.80-5.40); RDW 14.3 % (11.5-15.5); WBC 4.1 k/uL (3.8-10.6)
[2018-12-10 10:29] LABS: Calcium 8.7 mg/dL (8.4-10.2); Potassium 4.1 mmol/L (3.5-5.1)
[2018-12-10 10:39] LABS: Platelet Count 91 k/uL (150-450)
--- NOTE | 2018-12-10 12:50 | P.CONS ---
History of Present Illness - Reason for Consult Consult date: 12/10/18 hepatomegaly ascites Requesting physician: Matias Marroquin - Chief Complaint abdominal pain - History of Present Illness 48-year-old female admitted with diffuse abdominal pain distention nausea 3 days. Past medical history diabetes, hypertension, sleep apnea, obesity, cholecystectomy. CT abdomen and pelvis suspected cirrhosis liver lower limits of normal in size with lobulated peripheral nodular contour with underlying portal hypertension splenomegaly measuring 19 cm. Minimal abdominal ascites. 6.2 cm right ovarian adnexal lesion. Pelvic transvaginal ultrasound complex cyst right ovary. Patient has been seen by gynecology possible hemorrhagic ovarian cyst additional blood testing requested TICKET COLLECTOR OR USHER workup will continue on an outpatient basis. White count 4.1-4.9. Hemoglobin 11.7-12.8. Platelet 85-116. INR 1.0. BUN 12. Creatinine 0.6. Total bilirubin 1.6. AST 62. ALT 52. AP 86. Lipase 479. Amylase 79. Albumin 3.7. Hepatitis panel nonreactive. Patient has no history of known liver disorders or autoimmune disorders. No history of alcoholism or hepatitis. No history of intravenous drug or illicit drug use. Increased constipation over the last few days but other than that she 's had normal bowel movements. Sometimes she sees very pale pink discharge on wiping but not in her stool. Additionally has reports that sometimes when she is eating she has a sensation of food being stuck in the middle to distal esophagus. No history of EGD colonoscopy. Intermittent heartburn but not on a daily basis. No obvious reflux symptoms. Review of Systems Constitutional: Denies fever, chills, sweats, weight gain, or loss. HEENT: Negative for migraines, blurred vision or loss, earaches, drainage, tinnitus, oral mucosal lesions, dysphagia, or odynophagia. CARDIAC: Negative for chest pain, arrhythmias, or palpitation. RESPIRATORY: Negative for shortness of breath, hemoptysis, cough, or sputum production. GI: See HPI for pertinent findings. : Negative for hematuria, urgency, frequency, polyuria, or dysuria. GYNc: Denies possibility of . Negative vaginal discharge. MUSCULOSKELETAL: Negative for muscle aches, swelling, arthritis, and arthralgias. NEUROLOGIC: Negative for stroke or TIA. ENDOCRINE: Negative for thyroid problems. SKIN: Negative for rash or itching. PSYCHIATRIC: Negative history for depression and anxiety Past Medical History Past Medical History: Diabetes Mellitus, Hypertension, Sleep Apnea/CPAP/BIPAP Additional Past Medical History / Comment(s): Pre diabetes History of Any Multi-Drug Resistant Organisms: None Reported Past Surgical History: Ablation, Back Surgery, Section, Cholecystectomy Past Psychological History: No Psychological Hx Reported Smoking Status: Never smoker Past Alcohol Use History: None Reported Past Drug Use History: None Reported - Past Family History Father Family Medical History: Coronary Artery Disease (CAD), Diabetes Mellitus Medications and Allergies Home Medications Medication Instructions Recorded Confirmed Type Empagliflozin [Jardiance] 10 mg PO QAM 11/25/17 12/09/18 History Glucosamine/Chondr Rebolledo A Sod [Osteo 1 tab PO DAILY 11/25/17 12/09/18 History Bi-Flex Caplet] Lisinopril-Hctz 10-12.5 mg 1 tab PO DAILY 11/25/17 12/09/18 History [Zestoretic 10-12.5] Montelukast Sodium [Singulair] 10 mg PO HS 11/25/17 12/09/18 History Cyanocobalamin (Vitamin B-12) 1,000 mcg PO HS 12/09/18 12/09/18 History [Vitamin B-12] Liraglutide [Victoza 3-Luis] 1.2 mg SQ DAILY 12/09/18 12/09/18 History Magnesium Oxide [Mag-Ox] 250 mg PO HS 12/09/18 12/09/18 History Melatonin 10 mg PO HS 12/09/18 12/09/18 History Milk Thistle 150 mg PO HS 12/09/18 12/09/18 History Potassium 99 mg PO HS 12/09/18 12/09/18 History metFORMIN HCL 1,000 mg PO BID 12/09/18 12/09/18 History Allergies Allergy/AdvReac Type Severity Reaction Status Date / Time brompheniramine AdvReac Rapid Verified 12/09/18 12:19 [From Dimetapp Heart Rate (brompheniramine-PPA)] diphenhydramine AdvReac Rapid Verified 12/09/18 12:19 [From Benadryl] Heart Rate phenylpropanolamine AdvReac Rapid Verified 12/09/18 12:19 [From Dimetapp Heart Rate (brompheniramine-PPA)] Physical Exam Vitals: Vital Signs Temp Pulse Pulse Resp BP BP Pulse Ox 12/10/18 05:00 97.9 F 75 16 101/64 94 L 12/09/18 21:00 97.9 F 85 16 106/68 92 L 12/09/18 17:37 98 F 89 18 104/69 96 12/09/18 16:47 98.2 F 88 18 113/50 99 12/09/18 16:30 110/70 97 12/09/18 16:00 103/61 97 12/09/18 15:30 107/65 97 12/09/18 15:00 100/54 12/09/18 14:30 105/67 97 12/09/18 14:00 114/58 98 12/09/18 13:30 107/67 96 12/09/18 13:00 115/67 97 12/09/18 11:59 98.7 F 103 H 18 130/78 97 Intake and Output 12/09/18 12/10/18 12/10/18 22:59 06:59 14:59 Intake Total 1240 1400 Balance 1240 1400 Intake: Intake, IV Titration 160 320 Amount Sodium Chloride 0.9% 1, 160 320 000 ml @ 40 mls/hr IV . Q24H [facility] Rx#:[id number] Oral 1080 1080 Other: Voiding Method Toilet # Voids 2 4 General appearance: The patient is alert, oriented, in no acute distress. HET: Head is normocephalic and atraumatic. Pupils are equal and reactive. Oropharynx is clear without lesions. Neck: Supple without lymphadenopathy. Trachea midline. Heart: S1 S2. Regular rate and rhythm. Lungs: No crackles or wheezes are heard. Abdomen: Soft, mildly tender across mid abdomen mildly bloated with bowel sounds. No peritoneal signs. No palpable organomegaly or masses. Extremities: Normal skin color and turgor. No cyanosis, rash, ulceration, clubbing, or edema. Radial and pedal pulses are 2/4 bilaterally. Neurological: No focal deficits. Strength and sensation are grossly intact. Results CBC & Chem 7: 12/10/18 09:43 12/10/18 09:43 Labs: Abnormal Lab Results - Last 24 Hours (Table) 12/09/18 12/09/18 12/09/18 Range/Units 12:25 12:25 12:25 Plt Count 116 L (150-450) k/uL Lymphocytes # (1.0-4.8) k/uL Chloride 108 H (98-107) mmol/L Glucose 174 H (74-99) mg/dL Hemoglobin A1c 6.6 H (4.0-6.0) % Total Bilirubin 1.6 H (0.2-1.3) mg/dL AST 62 H (14-36) U/L Lipase 479 H (23-300) U/L Ur Specific [employer] (1.001-1.035) Urine Glucose (UA) (Negative) Ur Leukocyte Esterase (Negative) Urine RBC (0-5) /hpf Ur Squamous Epith Cells (0-4) /hpf Urine Mucus (None) /hpf 12/09/18 12/09/18 12/09/18 Range/Units 15:16 18:53 18:53 Plt Count 85 L (150-450) k/uL Lymphocytes # 0.7 L (1.0-4.8) k/uL Chloride 108 H (98-107) mmol/L Glucose 191 H (74-99) mg/dL Hemoglobin A1c (4.0-6.0) % Total Bilirubin (0.2-1.3) mg/dL AST (14-36) U/L Lipase (23-300) U/L Ur Specific [employer] 1.050 H (1.001-1.035) Urine Glucose (UA) 4+ H (Negative) Ur Leukocyte Esterase Small H (Negative) Urine RBC 12 H (0-5) /hpf Ur Squamous Epith Cells 6 H (0-4) /hpf Urine Mucus Rare H (None) /hpf CT scan - abdomen: report reviewed (Dr. Cline) US - abdomen: report reviewed (Dr. Cline) Assessment and Plan (1) Abdominal pain Narrative/Plan: 48-year-old female presents with acute abdominal pain right ovarian mass possible hemorrhagic cysts seen by gynecology with further outpatient workup as well as CT imaging suggestive of smaller lobular contour liver possible cirrhosis portal hypertension minimal ascites with splenomegaly. Patient is a history of diabetes mellitus, obesity, hypertension and hyperlipidemia raising the possibility of nonalcoholic fatty liver disease possible cirrhosis. Current Visit: Yes Status: Acute Code(s): R10.9 - UNSPECIFIED ABDOMINAL PAIN SNOMED Code(s): 63100473 (2) Cirrhosis Narrative/Plan: Possible Current Visit: Yes Status: Acute Code(s): K74.60 - UNSPECIFIED CIRRHOSIS OF LIVER SNOMED Code(s): 94268778 (3) Ascites Current Visit: Yes Status: Acute Code(s): R18.8 - OTHER ASCITES SNOMED Code(s): 065730633 (4) Ovarian mass, right Current Visit: Yes Status: Acute Code(s): N83.9 - NONINFLAMMATORY DISORD OF OVARY, FALLOP & BROAD LIGMT, UNSP SNOMED Code(s): 620396417 (5) Splenomegaly Current Visit: Yes Status: Acute Code(s): R16.1 - SPLENOMEGALY, NOT ELSEWHERE CLASSIFIED SNOMED Code(s): 16578492 (6) Thrombocytopenia Current Visit: Yes Status: Acute Code(s): D69.6 - THROMBOCYTOPENIA, UNSPECIFIED SNOMED Code(s): 987778766 (7) Portal hypertension Narrative/Plan: possible portal hypertension Current Visit: Yes Status: Acute Code(s): K76.6 - PORTAL HYPERTENSION SNOMED Code(s): 27271352 Plan: 1. Serologic workup for chronic liver disease requested. Liver ultrasound versus MRI was discussed injection molding machine operator will further advise. Not enough ascites at this time for diagnostic paracentesis however if ascites worsens paracentesis will be advised. Outpatient follow-up in 2 weeks for reevaluation and discussion of outpatient EGD colonoscopy for further evaluation of possible GERD abdominal pain. 2. Light diet as tolerated. We'll follow with you. Thank you for this kind referral and the opportunity to participate in the care of your patient. This consultation was discussed with Dr. Cline. The impression and plan of care have been directed as dictated.
[2018-12-10] MEDS: DOCUSATE 100 MG CAP PO SCH ×2 (12:55→23:12)
[2018-12-10 13:16] LABS: Total Bilirubin 1.6 mg/dL (0.2-1.3); Total Protein 6.2 g/dL (6.3-8.2)
--- NOTE | 2018-12-10 16:59 | P.CONS ---
History of Present Illness - Reason for Consult Consult date: 12/10/18 ovarian mass Requesting physician: Asha Brooke - Chief Complaint abd pain - History of Present Illness Mrs. Leach is a very pleasant 48-year-old female admitted with diffuse lower abdominal pain and distention with associated nausea and constipation 2- 3 days. Denied fevers, recent illnesses, bleeding, personal history of cancer or TIRE FINISHER problems, denied knowledge of low platelet count, ETOH abuse. She has occasional dysphagia and reflux. She has had CT AP showing small, lobulated liver with portal hypertension and splenomegaly measuring 19 cm, a 6.2 cm right ovarian adnexal lesion/complex cyst. Review of Systems 14 point review of systems is negative except as stated in HPI Past Medical History Past Medical History: Diabetes Mellitus, Hypertension, Sleep Apnea/CPAP/BIPAP Additional Past Medical History / Comment(s): Pre diabetes History of Any Multi-Drug Resistant Organisms: None Reported Past Surgical History: Ablation, Back Surgery, Section, Cholecystectomy Past Psychological History: No Psychological Hx Reported Smoking Status: Never smoker Past Alcohol Use History: None Reported Past Drug Use History: None Reported - Past Family History Father Family Medical History: Coronary Artery Disease (CAD), Diabetes Mellitus Medications and Allergies Home Medications Medication Instructions Recorded Confirmed Type Empagliflozin [Jardiance] 10 mg PO QAM 11/25/17 12/09/18 History Glucosamine/Chondr Rebolledo A Sod [Osteo 1 tab PO DAILY 11/25/17 12/09/18 History Bi-Flex Caplet] Lisinopril-Hctz 10-12.5 mg 1 tab PO DAILY 11/25/17 12/09/18 History [Zestoretic 10-12.5] Montelukast Sodium [Singulair] 10 mg PO HS 11/25/17 12/09/18 History Cyanocobalamin (Vitamin B-12) 1,000 mcg PO HS 12/09/18 12/09/18 History [Vitamin B-12] Liraglutide [Victoza 3-Luis] 1.2 mg SQ DAILY 12/09/18 12/09/18 History Magnesium Oxide [Mag-Ox] 250 mg PO HS 12/09/18 12/09/18 History Melatonin 10 mg PO HS 12/09/18 12/09/18 History Milk Thistle 150 mg PO HS 12/09/18 12/09/18 History Potassium 99 mg PO HS 12/09/18 12/09/18 History metFORMIN HCL 1,000 mg PO BID 12/09/18 12/09/18 History Allergies Allergy/AdvReac Type Severity Reaction Status Date / Time brompheniramine AdvReac Rapid Verified 12/09/18 12:19 [From Dimetapp Heart Rate (brompheniramine-PPA)] diphenhydramine AdvReac Rapid Verified 12/09/18 12:19 [From Benadryl] Heart Rate phenylpropanolamine AdvReac Rapid Verified 12/09/18 12:19 [From Dimetapp Heart Rate (brompheniramine-PPA)] Physical Exam Vitals: Vital Signs Temp Pulse Pulse Resp BP BP Pulse Ox 12/10/18 12:06 97.1 F L 73 16 87/51 96 12/10/18 05:00 97.9 F 75 16 101/64 94 L 12/09/18 21:00 97.9 F 85 16 106/68 92 L 12/09/18 17:37 98 F 89 18 104/69 96 12/09/18 16:47 98.2 F 88 18 113/50 99 Intake and Output 12/10/18 12/10/18 12/10/18 06:59 14:59 22:59 Intake Total 1400 1000 Balance 1400 1000 Intake: Intake, IV Titration 320 Amount Sodium Chloride 0.9% 1, 320 000 ml @ 40 mls/hr IV . Q24H [facility] Rx#:[id number] Oral 1080 1000 Other: Voiding Method Toilet Toilet # Voids 4 4 - Constitutional General appearance: cooperative, no acute distress, obese - EENT Eyes: anicteric sclerae, EOMI ENT: normal oropharynx - Neck Neck: no lymphadenopathy - Respiratory Respiratory: bilateral: CTA - Cardiovascular Rhythm: regular Heart sounds: normal: S1, S2 Abnormal Heart Sounds: no systolic murmur, no diastolic murmur, no rub, no S3 Gallop, no S4 Gallop, no click, no other leg Peripheral Edema: bilateral: None - Gastrointestinal difficult to evaluate due to large abd, no gross abnormality or organomegaly General gastrointestinal: normal bowel sounds, soft - Integumentary Integumentary: normal - Neurologic Neurologic: CNII-XII intact - Musculoskeletal Musculoskeletal: strength equal bilaterally - Psychiatric Psychiatric: A&O x's 3, appropriate affect, intact judgment & insight Results CBC & Chem 7: 12/10/18 09:43 12/10/18 09:43 Labs: Abnormal Lab Results - Last 24 Hours (Table) 12/09/18 12/09/18 12/09/18 Range/Units 12:25 18:53 18:53 RBC (3.80-5.40) m/uL Hgb (11.4-16.0) gm/dL Plt Count 85 L (150-450) k/uL Lymphocytes # 0.7 L (1.0-4.8) k/uL Chloride 108 H (98-107) mmol/L BUN (7-17) mg/dL Glucose 191 H (74-99) mg/dL Hemoglobin A1c 6.6 H (4.0-6.0) % Total Bilirubin (0.2-1.3) mg/dL AST (14-36) U/L Total Protein (6.3-8.2) g/dL Albumin (3.5-5.0) g/dL 12/10/18 12/10/18 Range/Units 09:43 09:43 RBC 3.64 L (3.80-5.40) m/uL Hgb 11.1 L (11.4-16.0) gm/dL Plt Count 91 L (150-450) k/uL Lymphocytes # 0.7 L (1.0-4.8) k/uL Chloride (98-107) mmol/L BUN 19 H (7-17) mg/dL Glucose 167 H (74-99) mg/dL Hemoglobin A1c (4.0-6.0) % Total Bilirubin 1.6 H (0.2-1.3) mg/dL AST 49 H (14-36) U/L Total Protein 6.2 L (6.3-8.2) g/dL Albumin 3.0 L (3.5-5.0) g/dL CT scan - abdomen: report reviewed CT scan - pelvis: report reviewed Assessment and Plan (1) Ovarian mass, right Narrative/Plan: Reviewed reports and testing performed regarding this right ovarian mass. At this time TIRE FINISHER continue to follow with patient and further work her up with referral to appropriate specialties as needed. Current Visit: Yes Status: Acute Priority: High Code(s): N83.9 - NONINFLAMMATORY DISORD OF OVARY, FALLOP & BROAD LIGMT, UNSP SNOMED Code(s): 963136077 (2) Portal hypertension Narrative/Plan: Patient has been seen by gastroenterology, further workup is planned Current Visit: Yes Status: Acute Priority: High Code(s): K76.6 - PORTAL HYPERTENSION SNOMED Code(s): 34472528 (3) Splenomegaly Narrative/Plan: Secondary to portal hypertension. Current Visit: Yes Status: Acute Priority: Medium Code(s): R16.1 - SPLENOMEGALY, NOT ELSEWHERE CLASSIFIED SNOMED Code(s): 99426565 (4) Thrombocytopenia Narrative/Plan: Secondary to portal hypertension with splenic sequestration and destruction of platelets. Patient's platelet counts are greater than 50,000, this reduces her risk for spontaneous bleeding. She would be okay for some surgical procedures. Current Visit: Yes Status: Acute Priority: Medium Code(s): D69.6 - THROMBOCYTOPENIA, UNSPECIFIED SNOMED Code(s): 090015820 Plan: Case was discussed extensively with Gastroenterology MANAGER IT SECURITY. All notes from TIRE FINISHER and their testing has been reviewed. Patient was highly anxious and very overwhelmed with all of the information. We will let TIRE FINISHER and GI finished her workup with referral back to hematology/oncology as needed. We are available for any questions or concerns if needed.
[2018-12-10 18:09] LABS: Iron Saturation 23.82 (12.00-45.00); Protein, Total 5.7 g/dL (6.2-8.2)
[2018-12-10 18:50] LABS: Alpha Fetoprotein, Tumor Mkr 4.3 ng/mL (0.0-7.9)
[2018-12-10] MEDS: MONTELUKAST 10 MG TAB PO SCH (23:10)
[2018-12-10] MEDS: MAGNESIUM OXIDE 400 MG TAB PO SCH (23:11)
[2018-12-10] MEDS: MELATONIN 5 MG TABLET PO SCH (23:11)
[2018-12-10] MEDS: SENNOSIDES-DOCUSATE SODIUM 1 EACH TAB PO SCH (23:12)
[2018-12-11] MEDS: SODIUM CHLORIDE 0.9% 1,000 ML IV SCH (02:58)
[2018-12-11 05:33] VITALS: TEMP 97.7
--- NOTE | 2018-12-11 08:07 | US ---
EXAMINATION TYPE: US abdomen complete DATE OF EXAM: 12/10/2018 COMPARISON: CT 2019 CLINICAL HISTORY: Possible cirrhosis. Abdomen and pelvic pain x 4 days, history of cholecystectomy, e xam done portable. EXAM MEASUREMENTS: Liver Length: 17.3 cm Gallbladder Wall: surgically absent CBD: 0.5 cm Spleen: 16.2 cm Right Kidney: 10.6 x 5.7 x 5.4 cm Left Kidney: 11.8 x 6.4 x 6.8 cm Difficult and limited study due to patient body habitus Pancreas: visualized portions wnl, partially obscured by overlying midline bowel gas Liver: heterogeneous, mildly nodular contour Gallbladder: surgically absent Evidence for sonographic Sheldon's sign: yes CBD: visualized portions wnl, limited by overlying bowel gas Spleen: enlarged Right Kidney: wnl Left Kidney: wnl Upper IVC: wnl Abd Aorta: proximal portion wnl, mid and distal portion obscured by overlying midline bowel gas IMPRESSION: 1. Heterogeneous pattern to the liver correlate for fatty infiltration or diffuse hepatocellular dise ase. 2. Splenomegaly
--- NOTE | 2018-12-11 08:58 | P.PN ---
Subjective Progress Note Date: 12/11/18 Principal diagnosis: Abdominal pain, 5-6 cm complex right adnexal mass The patient reports significant clinical improvement since yesterday. She was able to move her bowels last night which provided some relief but the pain has significantly dissipated and has required no further pain medications since yesterday. She is otherwise tolerating regular diet and doing all activities of daily living Objective - Vital Signs Vital signs: Vital Signs Temp 97.7 F 12/11/18 05:00 Pulse 82 12/11/18 05:00 Resp 18 12/11/18 05:00 BP 108/69 12/11/18 05:00 Pulse Ox 96 12/11/18 05:00 Intake & Output 12/10/18 12/11/18 12/11/18 18:59 06:59 18:59 Intake Total 1000 1700 Balance 1000 1700 Intake: Intake, IV Titration 480 Amount Sodium Chloride 0.9% 1, 480 000 ml @ 40 mls/hr IV . Q24H [facility] Rx#:[id number] Oral 1000 1220 Other: Voiding Method Toilet Toilet # Voids 4 2 # Bowel Movements 1 - Exam In general, this is an obese white female in no acute distress. She appears quite comfortable, significantly more so than yesterday. Her abdomen is obese, nondistended, soft, and with minimal tenderness throughout the entire examination in all quadrants. There are no peritoneal signs to include guarding and rebound. There is significant clinical improvement since yesterday. Her extremities without any cyanosis, clubbing, or edema and are nontender to palpation bilaterally. - Labs CBC & Chem 7: 12/10/18 09:43 12/10/18 09:43 Labs: Abnormal Lab Results - Last 24 Hours (Table) 12/10/18 12/10/18 12/10/18 Range/Units 09:43 09:43 09:43 RBC 3.64 L (3.80-5.40) m/uL Hgb 11.1 L (11.4-16.0) gm/dL Plt Count 91 L (150-450) k/uL Lymphocytes # 0.7 L (1.0-4.8) k/uL BUN 19 H (7-17) mg/dL Glucose 167 H (74-99) mg/dL Total Bilirubin 1.6 H (0.2-1.3) mg/dL AST 49 H (14-36) U/L Total Protein 6.2 L (6.3-8.2) g/dL Total Protein (PEP) 5.7 L (6.2-8.2) g/dL Albumin 3.0 L (3.5-5.0) g/dL Assessment and Plan (1) Abdominal pain Current Visit: Yes Status: Acute Code(s): R10.9 - UNSPECIFIED ABDOMINAL PAIN SNOMED Code(s): 64676899 (2) Ovarian mass, right Current Visit: Yes Status: Acute Priority: High Code(s): N83.9 - NONINFLAMMATORY DISORD OF OVARY, FALLOP & BROAD LIGMT, UNSP SNOMED Code(s): 716864653 Plan: Given the patient's marked improvement from a clinical perspective, I would strongly consider discharging the patient to follow-up in our office for repeat ultrasound in the next several weeks, 1-2 weeks for clinical follow-up. Given the natural history of her pain and its relatively rapid resolution, I strongly suspect a ruptured hemorrhagic ovarian cyst as both the etiology of her discomfort and the likely source of the right ovarian mass. As noted above, this will be followed up in the office. As regards the remainder of her findings of a, follow-up will be dictated by each of the involved subspecialties. I will sign off the case and will continue to monitor for results of the OVA1 testing as it becomes available.
[2018-12-11] MEDS ORDERED: PANTOPRAZOLE 40 MG TABLET PO SCH (09:00)
[2018-12-11 09:05] LABS: Basophils % (A) 0 %; Eosinophils # (A) 0.2 k/uL (0-0.7); Eosinophils % (A) 5 %; HCT 37.9 % (34.0-46.0); HGB 12.4 gm/dL (11.4-16.0); Lymphocytes # (A) 0.9 k/uL (1.0-4.8); Lymphocytes % (A) 24 %; MCH 31.2 pg (25.0-35.0); MCHC 32.6 g/dL (31.0-37.0); MCV 95.5 fL (80.0-100.0); Monocytes # (A) 0.2 k/uL (0-1.0); Monocytes % (A) 5 %; Neutrophils # (A) 2.3 k/uL (1.3-7.7); Neutrophils % (A) 63 %; RBC 3.97 m/uL (3.80-5.40); RDW 14.1 % (11.5-15.5); WBC 3.6 k/uL (3.8-10.6)
[2018-12-11 09:17] LABS: Platelet Count 74 k/uL (150-450)
[2018-12-11] MEDS: SENNOSIDES-DOCUSATE SODIUM 1 EACH TAB PO SCH (09:32)
[2018-12-11] MEDS: metFORMIN 500 MG TAB PO SCH (09:32)
[2018-12-11] MEDS: DOCUSATE 100 MG CAP PO SCH (09:32)
[2018-12-11] MEDS: LISINOPRIL-HCTZ 10-12.5 MG 1 EACH TAB PO SCH (09:32)
[2018-12-11] MEDS: HEPARIN SODIUM,PORCINE 5,000 UNIT/ML 1 ML VIAL SQ SCH (09:32)
[2018-12-11] MEDS: LIRAGLUTIDE 1.2 MG SQ SCH (09:34)
[2018-12-11] MEDS: EMPAGLIFLOZIN 10 MG PO SCH (09:34)
[2018-12-11 09:47] LABS: ALT 50 U/L (9-52); AST 61 U/L (14-36); Albumin 3.2 g/dL (3.5-5.0); Alkaline Phosphatase 70 U/L (38-126); Anion Gap 8 mmol/L; Bilirubin, Delta 0.2 mg/dL (0.0-0.2); Bilirubin,Unconjugated 1.6 mg/dL (0.0-1.1); Blood Urea Nitrogen 18 mg/dL (7-17); Calcium 9.1 mg/dL (8.4-10.2); Carbon Dioxide 24 mmol/L (22-30); Chloride 107 mmol/L (98-107); Glucose 106 mg/dL (74-99); Lipase 218 U/L (23-300); Potassium 4.5 mmol/L (3.5-5.1); Sodium 139 mmol/L (137-145); Total Bilirubin 1.8 mg/dL (0.2-1.3); Total Protein 6.6 g/dL (6.3-8.2)
--- NOTE | 2018-12-11 10:54 | P.PN ---
Subjective Progress Note Date: 12/11/18 Principal diagnosis: Abdominal pain possible cirrhosis right ovarian mass Abdominal pain much improved. No complaints. LFTs stable total bilirubin 1.8. AST 61. ALT 50. AP 70. Unconjugated bilirubin 1.6. Ultrasound abdomen liver measured 17.3 cm. CBD 0.5 cm. Heterogeneous pattern to the liver [place] for fatty infiltration or diffuse hepatocellular disease mildly nodular contour. Splenomegaly. Serologic workup for chronic liver disease and process. Objective - Vital Signs Vital signs: Vital Signs Temp 97.7 F 12/11/18 05:00 Pulse 82 12/11/18 05:00 Resp 18 12/11/18 05:00 BP 108/69 12/11/18 05:00 Pulse Ox 96 12/11/18 05:00 Intake & Output 12/10/18 12/11/18 12/11/18 18:59 06:59 18:59 Intake Total 1000 1700 Balance 1000 1700 Intake: Intake, IV Titration 480 Amount Sodium Chloride 0.9% 1, 480 000 ml @ 40 mls/hr IV . Q24H [facility] Rx#:[id number] Oral 1000 1220 Other: Voiding Method Toilet Toilet # Voids 4 2 # Bowel Movements 1 - Exam General appearance: The patient is alert, oriented, in no acute distress. HET: Head is normocephalic and atraumatic. Pupils are equal and reactive. Oropharynx is clear without lesions. Neck: Supple without lymphadenopathy. Trachea midline. Heart: S1 S2. Regular rate and rhythm. Lungs: No crackles or wheezes are heard. Abdomen: Soft, mildly tender to the bilateral lower abdomen, nondistended with bowel sounds. No peritoneal signs. No palpable organomegaly or masses. Extremities: Normal skin color and turgor. No cyanosis, rash, ulceration, clubbing, or edema. Radial and pedal pulses are 2/4 bilaterally. Neurological: No focal deficits. Strength and sensation are grossly intact. - Labs CBC & Chem 7: 12/11/18 08:04 12/11/18 08:04 Labs: Abnormal Lab Results - Last 24 Hours (Table) 12/10/18 12/10/18 12/11/18 Range/Units 09:43 09:43 08:04 WBC 3.6 L (3.8-10.6) k/uL Plt Count 74 L (150-450) k/uL Lymphocytes # 0.9 L (1.0-4.8) k/uL BUN 19 H (7-17) mg/dL Glucose 167 H (74-99) mg/dL Total Bilirubin 1.6 H (0.2-1.3) mg/dL Unconjugated Bilirubin (0.0-1.1) mg/dL AST 49 H (14-36) U/L Total Protein 6.2 L (6.3-8.2) g/dL Total Protein (PEP) 5.7 L (6.2-8.2) g/dL Albumin 3.0 L (3.5-5.0) g/dL 12/11/18 Range/Units 08:04 WBC (3.8-10.6) k/uL Plt Count (150-450) k/uL Lymphocytes # (1.0-4.8) k/uL BUN 18 H (7-17) mg/dL Glucose 106 H (74-99) mg/dL Total Bilirubin 1.8 H (0.2-1.3) mg/dL Unconjugated Bilirubin 1.6 H (0.0-1.1) mg/dL AST 61 H (14-36) U/L Total Protein (6.3-8.2) g/dL Total Protein (PEP) (6.2-8.2) g/dL Albumin 3.2 L (3.5-5.0) g/dL Assessment and Plan (1) Abdominal pain Narrative/Plan: 48-year-old female presents with acute abdominal pain right ovarian mass possible hemorrhagic cysts seen by gynecology with further outpatient workup as well as CT imaging suggestive of smaller lobular contour liver possible cirrhosis portal hypertension minimal ascites with splenomegaly. Patient is a history of diabetes mellitus, obesity, hypertension and hyperlipidemia raising the possibility of nonalcoholic fatty liver disease possible cirrhosis. Current Visit: Yes Status: Acute Code(s): R10.9 - UNSPECIFIED ABDOMINAL PAIN SNOMED Code(s): 51019891 (2) Cirrhosis Narrative/Plan: Possible Current Visit: Yes Status: Acute Code(s): K74.60 - UNSPECIFIED CIRRHOSIS OF LIVER SNOMED Code(s): 21564371 (3) Ascites Current Visit: Yes Status: Acute Code(s): R18.8 - OTHER ASCITES SNOMED Code(s): 023032181 (4) Ovarian mass, right Current Visit: Yes Status: Acute Priority: High Code(s): N83.9 - NONINFLAMMATORY DISORD OF OVARY, FALLOP & BROAD LIGMT, UNSP SNOMED Code(s): 649543229 (5) Splenomegaly Current Visit: Yes Status: Acute Priority: Medium Code(s): R16.1 - SPLENOMEGALY, NOT ELSEWHERE CLASSIFIED SNOMED Code(s): 49786505 (6) Thrombocytopenia Current Visit: Yes Status: Acute Priority: Medium Code(s): D69.6 - THROMBOCYTOPENIA, UNSPECIFIED SNOMED Code(s): 159850155 (7) Portal hypertension Narrative/Plan: possible portal hypertension Current Visit: Yes Status: Acute Priority: High Code(s): K76.6 - PORTAL HYPERTENSION SNOMED Code(s): 34598785 Plan: 1. Serologic workup for chronic liver disease requested and pending. Ultrasound reviewed by Dr. Cline. Agreeable for discharge follow-up in office for further evaluation and continued workup for possible underlying nonalcoholic cirrhosis; discussion of possible outpatient endoscopy. Assessment and plan a care discussed with Dr. Cline
[2018-12-11 11:09] LABS: Liver/Kidney Microsome Antibod 1.1 UNITS (<=20)
[2018-12-11 11:59] LABS: Ceruloplasmin 26.7 mg/dL (20.0-60.0)
[2018-12-11 12:14] VITALS: BP 106/69; PULSE 86; RESP 20
[2018-12-12 10:00] LABS: Gamma Globulin 1.23 g/dL (0.70-1.50)
--- NOTE | 2018-12-12 20:58 | P.PN ---
Subjective Progress Note Date: 12/10/18 Interval history: This a 48-year-old female admitted with abdominal pain for evaluation, possible ovarian mass, possible cirrhosis of liver with splenomegaly with elevated LFTs in a patient with history of fatty liver syndrome. Evaluated by WOOD AND HARD[employer] OUTFITTER Dr. Morocho, reviewed radiology/US studies. Relates findings to most likely represent a hemorrhagic cyst causing patient's symptoms which will resolve on its own. Dr. Morocho is retrieving her recent ultrasound from office for comparison. OVA 1 test ordered( send-Out). GI consulted with recommendations noted. Complains of no bowel movement in over 48 hours. Reports improvement in right lower quadrant pain with Toradol. Hepatitis panel nonreactive. Objective - Vital Signs Vital signs: Vital Signs Temp 98.7 F 12/10/18 20:16 Pulse 86 12/10/18 20:16 Resp 16 12/10/18 20:16 BP 108/70 12/10/18 20:16 Pulse Ox 95 12/10/18 20:16 Intake & Output 12/10/18 12/10/18 12/11/18 06:59 18:59 06:59 Intake Total 2640 1000 1380 Balance 2640 1000 1380 Intake: Intake, IV Titration 480 160 Amount Sodium Chloride 0.9% 1, 480 160 000 ml @ 40 mls/hr IV . Q24H [facility] Rx#:[id number] Oral 2160 1000 1220 Other: Voiding Method Toilet Toilet # Voids 4 4 3 # Bowel Movements 1 - Exam PHYSICAL EXAM: VITAL SIGNS: As above GENERAL: Sitting up in bed, no acute distress HEENT: Conjunctivae normal. eyes normal. Oral mucosa moist NECK: No JVD. No thyroid enlargement. No LNs CARDIOVASCULAR: S1, S2 muffled. No murmur RESPIRATION: Breath sounds diminished in the bases. No rhonchi or crackles. No bronchial breathing. ABDOMEN: Soft, minimal diffuse across mid-abdomen, right lower quadrant tenderness. Nondistended No guarding. no masses palpable. No hepatosplenomegaly.Bowel sounds heard. LEGS: No edema. no swelling PSYCHIATRY: Alert and oriented -3, mood and affect normal. NERVOUS SYSTEM: Cranial N 2-12 grossly normal. Moves all 4 limbs. Diffuse weakness No focal deficits. Skin: no ulcer no rash Joints: No active swelling. No inflammation. Lymphatic system. No LN neck axilla or groin. - Labs CBC & Chem 7: 12/11/18 08:04 12/11/18 08:04 Labs: Abnormal Lab Results - Last 24 Hours (Table) 12/09/18 12/10/18 12/10/18 Range/Units 12:25 09:43 09:43 RBC 3.64 L (3.80-5.40) m/uL Hgb 11.1 L (11.4-16.0) gm/dL Plt Count 91 L (150-450) k/uL Lymphocytes # 0.7 L (1.0-4.8) k/uL BUN 19 H (7-17) mg/dL Glucose 167 H (74-99) mg/dL Hemoglobin A1c 6.6 H (4.0-6.0) % Total Bilirubin 1.6 H (0.2-1.3) mg/dL AST 49 H (14-36) U/L Total Protein 6.2 L (6.3-8.2) g/dL Total Protein (PEP) (6.2-8.2) g/dL Albumin 3.0 L (3.5-5.0) g/dL 12/10/18 Range/Units 09:43 RBC (3.80-5.40) m/uL Hgb (11.4-16.0) gm/dL Plt Count (150-450) k/uL Lymphocytes # (1.0-4.8) k/uL BUN (7-17) mg/dL Glucose (74-99) mg/dL Hemoglobin A1c (4.0-6.0) % Total Bilirubin (0.2-1.3) mg/dL AST (14-36) U/L Total Protein (6.3-8.2) g/dL Total Protein (PEP) 5.7 L (6.2-8.2) g/dL Albumin (3.5-5.0) g/dL Assessment and Plan Assessment: -Abdominal pain for evaluation, possible right ovarian mass, most likely a hemorrhagic ruptured cyst as per WO[employer] HARD[employer] OUTFITTER. -Possible cirrhosis of liver with splenomegaly -Elevated LFTs, total bilirubin secondary to the above, in a patient with history of fatty liver -Diabetes mellitus type 2 -Constipation Plan: Continue on current medication regime ,monitoring and symptomatic treatment. Receiving Toradol for pain management. Complains of constipation, Colace and Senokot added to med regime. Increase ambulation as tolerated. GI discussed saying liver ultrasound versus MRI. Discharge planning in progress for tomorrow pending improvement in patient's symptoms/pain. The impression and plan of care has been dictated as directed. : I performed a history and examination of this patient, discussed the same with the dictator. I agree with the dictator's note ,documented as a scribe. Any additional findings or plans will be noted.
--- NOTE | 2018-12-16 06:50 | P.DS ---
Providers Date of admission: 12/09/18 16:20 Expected date of discharge: 12/11/18 Attending physician: Matias Dominguez Consults: 12/09/18 16:10 Consult Physician Stat Consulting Provider: Miriam Avery Consult Reason/Comments: R ovarian mass, ascites Do you want consulting provider notified?: Yes Primary care physician: Ashley Riggs Hospital Course: Final Diagnoses: -Abdominal pain for evaluation, possible right ovarian mass, most likely a hemorrhagic ruptured cyst as per PRISON GUARD. -Possible cirrhosis of liver with splenomegaly -Elevated LFTs, total bilirubin secondary to the above, in a patient with history of fatty liver; possible nonalcoholic cirrhosis-possible outpatient endoscopy -Diabetes mellitus type 2 -Constipation,resolved. Hospital course:This a 48-year-old female admitted with abdominal pain for evaluation, possible ovarian mass, possible cirrhosis of liver with splenomegaly with elevated LFTs in a patient with history of fatty liver syndrome. Evaluated by PRISON GUARD Dr. Morocho, reviewed radiology/US studies. Relates findings to most likely represent a hemorrhagic cyst causing patient's symptoms which will resolve on its own. Pain management with Toradol.OVA 1 test ordered( send-Out). GI consulted with recommendations noted. Complained of no bowel movement in over 48 hours.Constipation resolved, pain significantly improved. Hepatitis panel nonreactive. Abdominal ultrasound reporting heterogenesis pattern to the liver, correlate for fatty infiltration or diffuse hepatocellular disease, splenomegaly. Serologic workup for chronic liver disease in process. Further workup outpatient with GI, discussing outpatient endoscopy. Significant clinical improvement. Cleared by all consults for discharge. Patient is being discharged home in stable condition with guarded prognosis. EXAM: GENERAL: Alert and oriented 3, no acute distress NECK: No JVD. No thyroid enlargement. No LNs CARDIOVASCULAR: S1, S2 muffled. No murmur RESPIRATION: Breath sounds diminished in the bases. No rhonchi or crackles. ABDOMEN: Soft, minimal diffuse across mid-abdomen, right lower quadrant tenderness. Nondistended No guarding. Bowel sounds heard. NERVOUS SYSTEM: No focal deficits. The impression and plan of care has been dictated as directed. : I performed a history and examination of this patient, discussed the same with the dictator. I agree with the dictator's note ,documented as a scribe. Any additional findings or plans will be noted. Time taken: 35 minutes Patient Condition at Discharge: Stable Plan - Discharge Summary Discharge Rx Participant: Yes New Discharge Prescriptions: New Sennosides-Docusate Sodium [Senokot-S] 2 each PO BID tab Continue Montelukast Sodium [Singulair] 10 mg PO HS Lisinopril-Hctz 10-12.5 mg [Zestoretic 10-12.5] 1 tab PO DAILY Empagliflozin [Jardiance] 10 mg PO QAM Glucosamine/Chondr Rebolledo A Sod [Osteo Bi-Flex Caplet] 1 tab PO DAILY Cyanocobalamin (Vitamin B-12) [Vitamin B-12] 1,000 mcg PO HS Potassium 99 mg PO HS Milk Thistle 150 mg PO HS Melatonin 10 mg PO HS Liraglutide [Victoza 3-Luis] 1.2 mg SQ DAILY metFORMIN HCL 1,000 mg PO BID Magnesium Oxide [Mag-Ox] 250 mg PO HS Discharge Medication List Empagliflozin [Jardiance] 10 mg PO QAM 11/25/17 [History] Glucosamine/Chondr Rebolledo A Sod [Osteo Bi-Flex Caplet] 1 tab PO DAILY 11/25/17 [ History] Lisinopril-Hctz 10-12.5 mg [Zestoretic 10-12.5] 1 tab PO DAILY 11/25/17 [History ] Montelukast Sodium [Singulair] 10 mg PO HS 11/25/17 [History] Cyanocobalamin (Vitamin B-12) [Vitamin B-12] 1,000 mcg PO HS 12/09/18 [History] Liraglutide [Victoza 3-Luis] 1.2 mg SQ DAILY 12/09/18 [History] Magnesium Oxide [Mag-Ox] 250 mg PO HS 12/09/18 [History] Melatonin 10 mg PO HS 12/09/18 [History] Milk Thistle 150 mg PO HS 12/09/18 [History] Potassium 99 mg PO HS 12/09/18 [History] metFORMIN HCL 1,000 mg PO BID 12/09/18 [History] Sennosides-Docusate Sodium [Senokot-S] 2 each PO BID tab 12/11/18 [Rx] Follow up Appointment(s)/Referral(s): Thony Sanchez MD [STAFF PHYSICIAN] - 1 Week (Patient will call and make her own appointment.) Ashley Riggs MD [Primary Care Provider] - 12/18/18 4:30 pm Jono Cline MD [STAFF PHYSICIAN] - 01/07/19 9:45 am Patient Instructions/Handouts: Ascites (DC), Thrombocytopenia (DC) Discharge Disposition: HOME SELF-CARE
== END 2018-12-11 13:05 | disposition home or self-care (01) ==
LOC: EC 11:56 → INTOOBSV 16:20 → 3NMEDONC 16:20
PROVIDERS: ADMIT Hospitalist; ATTEND Hospitalist
DX: R10.31 Right lower quadrant pain (principal); E11.9 Type 2 diabetes mellitus without complications; I10 Essential (primary) hypertension; K59.00 Constipation, unspecified; R11.0 Nausea; R18.8 Other ascites; K76.6 Portal hypertension; D69.6 Thrombocytopenia, unspecified; R16.2 Hepatomegaly with splenomegaly, not elsewhere classified; K76.89 Other specified diseases of liver; R13.10 Dysphagia, unspecified; K21.9 Gastro-esophageal reflux disease without esophagitis; K76.0 Fatty (change of) liver, not elsewhere classified; E78.5 Hyperlipidemia, unspecified; G47.30 Sleep apnea, unspecified; Z90.49 Acquired absence of other specified parts of digestive tract; Z79.899 Other long term (current) drug therapy; Z79.84 Long term (current) use of oral hypoglycemic drugs; Z88.8 Allergy status to other drugs, medicaments and biological substances; Z87.891 Personal history of nicotine dependence; W00.0XXA Fall on same level due to ice and snow, initial encounter; Z99.89 Dependence on other enabling machines and devices; E66.01 Morbid (severe) obesity due to excess calories; Z68.42 Body mass index [BMI] 45.0-49.9, adult; Z98.891 History of uterine scar from previous surgery; Z82.49 Family history of ischemic heart disease and other diseases of the circulatory system; Z83.3 Family history of diabetes mellitus
CPT/HCPCS: 99285; 96374; 96376 ×3; 96372 ×3; 96375 ×2; 96361; 36415; 86376; 80061; 80053 ×2; 80048 ×2; 80076; 80074; 82728; 82150; 83540; 83550; 83690 ×3; 85025 ×3; 85610; 85730; 81001; 83516 ×2; 81503; 82103; 82105; 84165; 82390; 86038; 83036; 93976; 76700; 76856; 76830; 74177; G0378 ×4; J1644 ×3; J2405; J1885 ×2; J1170 ×3; C9113; Q9967

== ENCOUNTER → 2018-12-23 | Outpatient (CLI) | payer BC ==
--- NOTE | 2018-12-23 10:17 | MM ---
Reason for exam: screening (asymptomatic). Last mammogram was performed 1 year and 10 months ago. History: Patient is postmenopausal and has history of ovarian cancer at age 48. Physical Findings: A clinical breast exam by your physician is recommended on an annual basis and results should be correlated with mammographic findings. MG Screening Mammo w CAD Bilateral CC and MLO view(s) were taken. Prior study comparison: February 23, 2017, mammogram, performed at [facility]. There are scattered fibroglandular densities. There is no discrete abnormality. No significant changes when compared with prior studies. ASSESSMENT: Negative, BI-RAD 1 RECOMMENDATION: Routine screening mammogram of both breasts in 1 year.
== END | disposition home or self-care (01) ==
LOC: RADMAMWWP 07:03
PROVIDERS: ATTEND Obstetrics & Gynecology Obstetrics
DX: Z12.31 Encounter for screening mammogram for malignant neoplasm of breast (principal)
CPT/HCPCS: 77067

== ENCOUNTER → 2020-04-08 | Outpatient (CLI) | payer BC ==
--- NOTE | 2020-04-09 11:21 | MM ---
Reason for exam: screening (asymptomatic). Last mammogram was performed 1 year and 3 months ago. History: Patient is postmenopausal and has history of ovarian cancer at age 48. Physical Findings: A clinical breast exam by your physician is recommended on an annual basis and results should be correlated with mammographic findings. MG Screening Mammo w CAD Bilateral CC and MLO view(s) were taken. Prior study comparison: December 23, 2018, bilateral MG screening mammo w CAD. February 23, 2017, mammogram, performed at [facility]. There are scattered fibroglandular densities. There is no discrete abnormality. No significant changes when compared with prior studies. ASSESSMENT: Negative, BI-RAD 1 RECOMMENDATION: Routine screening mammogram of both breasts in 1 year.
== END | disposition home or self-care (01) ==
LOC: RADMAMWWP 16:03
PROVIDERS: ATTEND Internal Medicine
DX: Z12.31 Encounter for screening mammogram for malignant neoplasm of breast (principal)
CPT/HCPCS: 77067

== ENCOUNTER → 2021-12-15 | Outpatient (CLI) | payer BC ==
--- NOTE | 2021-12-16 13:39 | MM ---
Reason for exam: screening (asymptomatic). Last mammogram was performed 1 year and 8 months ago. History: Patient is postmenopausal and has history of ovarian cancer at age 48. Taking estrogen beginning at age 48. Physical Findings: A clinical breast exam by your physician is recommended on an annual basis and results should be correlated with mammographic findings. MG Screening Mammo w CAD Bilateral CC and MLO view(s) were taken. Prior study comparison: April 08, 2020, bilateral MG screening mammo w CAD. December 23, 2018, bilateral MG screening mammo w CAD. There are scattered fibroglandular densities. There is no discrete abnormality. No significant changes when compared with prior studies. ASSESSMENT: Negative, BI-RAD 1 RECOMMENDATION: Routine screening mammogram of both breasts in 1 year.
== END | disposition home or self-care (01) ==
LOC: RADMAMWWP 16:38
PROVIDERS: ATTEND Obstetrics & Gynecology Obstetrics
DX: Z12.31 Encounter for screening mammogram for malignant neoplasm of breast (principal); Z78.0 Asymptomatic menopausal state; Z85.43 Personal history of malignant neoplasm of ovary
CPT/HCPCS: 77067

== ENCOUNTER 2022-02-01 12:45 | Emergency (ER) | payer BC ==
[2022-02-01 12:51] VITALS: RESP 18
[2022-02-01] MEDS ORDERED: ONDANSETRON 4 MG/2 ML VIAL IVP STA (13:12)
[2022-02-01] MEDS ORDERED: SODIUM CHLORIDE 0.9% 1,000 ML IV STA (13:12)
[2022-02-01] MEDS ORDERED: MORPHINE SULFATE 4 MG/ML SYRINGE IV STA ×2 (13:12→15:36)
--- NOTE | 2022-02-01 13:20 | ED ---
General Adult HPI - General Chief complaint: Abdominal Pain Stated complaint: Right Abdominal Pain, Constipation, Vomiting Time Seen by Provider: 02/01/22 12:55 Source: patient, family Mode of arrival: ambulatory Limitations: no limitations - History of Present Illness Initial comments: Dictation was produced using Involv[employer] dictation software. please excuse any grammatical, word or spelling errors. Chief Complaint: 52-year-old female presents emergency depart for nausea, vomiting and abdominal pain History of Present Illness: Is a 52-year-old female. Presents emergency department for nausea, vomiting and abdominal pain she states the pain is currently in her right flank. States it initially was midline and migrated over to the right mid abdomen. She has a past medical history cholecystectomy. She still has her appendix patient's history of total abdominal hysterectomy, bilateral salpingectomy and oophorectomy. She does not have a significant medical problems. She had a loose bowel movement yesterday. Denies any celia rrhea. She had one episode of nonbilious nonbloody emesis today. Denies any obvious sick contacts. 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 Denies any fever however she does complain of chills. The ROS documented in this emergency department record has been reviewed and confirmed by me. Those systems with pertinent positive or negative responses have been documented in the HPI. All other systems are other negative and/or noncontributory. PHYSICAL EXAM: General Impression: Alert and oriented x3, not in acute distress HEENT: Normocephalic atraumatic, extra-ocular movements intact, pupils equal and reactive to light bilaterally, mucous membranes moist. Cardiovascular: Heart regular rate and rhythm Chest: Able to complete full sentences, no retractions, no tachypnea Abdomen: abdomen soft, palpatory tenderness to the right mid abdomen, negative Sheldon sign, no pain at McBurney's point Musculoskeletal: Pulses present and equal in all extremities, no peripheral edema Motor: no focal deficits noted Neurological: CN II-XII grossly intact, no focal motor or sensory deficits noted Skin: Intact with no visualized rashes Psych: Normal affect and mood ED course: 52-year-old female presents with abdominal pain, nausea and vomiting for 48 hours. Vital Signs upon arrival shows heart rate of 124, rest of vital signs within acceptable limits. To evaluation obtained. CBC unremarkable. Patient's platelet count today was 70 however in 2019 she had a plate count of 74. Metabolic panel shows sodium 131 however glucose is 424 is likely pseudohyponatremia. Lipase levels 400. The skin the abdomen and pelvis shows evidence of acute appendicitis. Radiology imaging suspects colitis. Patient does have radiologic signs of portal hypertension w associated splenomegaly and gastroesophageal varices. She was reevaluated at the bedside at 3:35 PM. Patient stable medical condition. She still continued to have some pain in her abdomen. She does have sporadic hepatic changes patient denies any alcohol abuse currently or in the past. Patient was notified of the radiologic results and the results of her blood work. Patient told that she is prediabetic. She is also told that she has incidental radiologic findings that need to be evaluated by primary care doctor. She given another dose of IV morphine and her blood sugar been monitored in the ER. She is blood glucose was corrected with IV fluids and insulin. She was observed in the emergency department for approximately 5 hours. Patient be discharged advised follow-up with primary care doctor for outpatient management of her colitis, diabetes and incidental CT findings. - Related Data Home Medications Medication Instructions Recorded Confirmed Montelukast Sodium [Singulair] 10 mg PO HS 11/25/17 02/01/22 Escitalopram Oxalate [Lexapro] 10 mg PO HS 02/01/22 02/01/22 Fluticasone Nasal [place] [Flonase 1 spray EA NOSTRIL DAILY 02/01/22 02/01/22 Nasal [place]] Multivitamins, Thera [Multivitamin 1 tab PO DAILY 02/01/22 02/01/22 (formulary)] Progesterone, Micronized 200 mg PO HS 02/01/22 02/01/22 [Progesterone] estradioL [estradioL (Twice 1 patch TRANSDERM SUWE 02/01/22 02/01/22 Weekly) 0.05 mg Patch] lisinopriL [Zestril] 2.5 mg PO DAILY 02/01/22 02/01/22 Allergies Allergy/AdvReac Type Severity Reaction Status Date / Time brompheniramine AdvReac Rapid Verified 02/01/22 14:15 [From Dimetapp Heart Rate (brompheniramine-PPA)] diphenhydramine AdvReac Rapid Verified 02/01/22 14:15 [From Benadryl] Heart Rate phenylpropanolamine AdvReac Rapid Verified 02/01/22 14:15 [From Dimetapp Heart Rate (brompheniramine-PPA)] Review of Systems ROS Statement: Those systems with pertinent positive or pertinent negative responses have been documented in the HPI. ROS Other: All systems not noted in ROS Statement are negative. Past Medical History Past Medical History: Diabetes Mellitus, Hypertension, Sleep Apnea/CPAP/BIPAP Additional Past Medical History / Comment(s): Pre diabetes History of Any Multi-Drug Resistant Organisms: None Reported Past Surgical History: Ablation, Back Surgery, Section, Cholecystectomy Past Psychological History: No Psychological Hx Reported Smoking Status: Never smoker Past Alcohol Use History: None Reported Past Drug Use History: None Reported - Past Family History Father Family Medical History: Coronary Artery Disease (CAD), Diabetes Mellitus General Exam Limitations: no limitations Course Vital Signs 02/01/22 02/01/22 02/01/22 12:46 14:45 17:36 Temperature 99.1 F Pulse Rate 124 H 109 H 105 H Respiratory 18 18 18 Rate Blood Pressure 121/67 109/65 120/72 O2 Sat by Pulse 96 99 96 Oximetry Medical Decision Making - Lab Data Result diagrams: 02/01/22 13:10 02/01/22 13:10 Lab Results 02/01/22 02/01/22 02/01/22 Range/Units 13:10 13:10 15:49 WBC 6.5 (3.8-10.6) k/uL RBC 4.44 (3.80-5.40) m/uL Hgb 13.8 (11.4-16.0) gm/dL Hct 41.6 (34.0-46.0) % MCV 93.8 (80.0-100.0) fL MCH 31.0 (25.0-35.0) pg MCHC 33.0 (31.0-37.0) g/dL RDW 14.0 (11.5-15.5) % Plt Count 70 L (150-450) k/uL MPV 7.6 Neutrophils % 81 % Lymphocytes % 9 % Monocytes % 7 % Eosinophils % 2 % Basophils % 0 % Neutrophils # 5.2 (1.3-7.7) k/uL Lymphocytes # 0.6 L (1.0-4.8) k/uL Monocytes # 0.4 (0-1.0) k/uL Eosinophils # 0.1 (0-0.7) k/uL Basophils # 0.0 (0-0.2) k/uL Manual Slide Review Performed Sodium 131 L (137-145) mmol/L Potassium 4.0 (3.5-5.1) mmol/L Chloride 103 (98-107) mmol/L Carbon Dioxide 20 L (22-30) mmol/L Anion Gap 8 mmol/L BUN 10 (7-17) mg/dL Creatinine 0.47 L (0.52-1.04) mg/dL Est GFR (CKD-EPI)AfAm >90 (>60 ml/min/1.73 sqM) Est GFR (CKD-EPI)NonAf >90 (>60 ml/min/1.73 sqM) Glucose 424 H (74-99) mg/dL POC Glucose (mg/dL) 351 H (75-99) mg/dL POC Glu Ladies Suit Operator ID Priscilla Galvan Calcium 8.4 (8.4-10.2) mg/dL Total Bilirubin 3.3 H (0.2-1.3) mg/dL AST 44 H (14-36) U/L ALT 30 (4-34) U/L Alkaline Phosphatase 96 (38-126) U/L Total Protein 6.7 (6.3-8.2) g/dL Albumin 3.1 L (3.5-5.0) g/dL Lipase 400 H (23-300) U/L 02/01/22 02/01/22 Range/Units 16:45 18:06 WBC (3.8-10.6) k/uL RBC (3.80-5.40) m/uL Hgb (11.4-16.0) gm/dL Hct (34.0-46.0) % MCV (80.0-100.0) fL MCH (25.0-35.0) pg MCHC (31.0-37.0) g/dL RDW (11.5-15.5) % Plt Count (150-450) k/uL MPV Neutrophils % % Lymphocytes % % Monocytes % % Eosinophils % % Basophils % % Neutrophils # (1.3-7.7) k/uL Lymphocytes # (1.0-4.8) k/uL Monocytes # (0-1.0) k/uL Eosinophils # (0-0.7) k/uL Basophils # (0-0.2) k/uL Manual Slide Review Sodium (137-145) mmol/L Potassium (3.5-5.1) mmol/L Chloride (98-107) mmol/L Carbon Dioxide (22-30) mmol/L Anion Gap mmol/L BUN (7-17) mg/dL Creatinine (0.52-1.04) mg/dL Est GFR (CKD-EPI)AfAm (>60 ml/min/1.73 sqM) Est GFR (CKD-EPI)NonAf (>60 ml/min/1.73 sqM) Glucose (74-99) mg/dL POC Glucose (mg/dL) 364 H 296 H (75-99) mg/dL POC Glu Ladies Suit Operator ID Kareem Garcia Brittni Calcium (8.4-10.2) mg/dL Total Bilirubin (0.2-1.3) mg/dL AST (14-36) U/L ALT (4-34) U/L Alkaline Phosphatase (38-126) U/L Total Protein (6.3-8.2) g/dL Albumin (3.5-5.0) g/dL Lipase (23-300) U/L Disposition Clinical Impression: Hyperglycemia, Portal hypertension, Colitis Disposition: HOME SELF-CARE Condition: Fair Instructions (If sedation given, give patient instructions): Diabetic Hyperglycemia (ED), Colitis (ED), Portal Hypertension (ED) Is patient prescribed a controlled substance at d/c from ED?: No Referrals: Ashley Riggs MD [Primary Care Provider] - 1-2 days
[2022-02-01 13:33] LABS: ALT 30 U/L (4-34); AST 44 U/L (14-36); African American GFR (CKD) >90 (>60 ml/min/1.73 sqM); Albumin 3.1 g/dL (3.5-5.0); Alkaline Phosphatase 96 U/L (38-126); Anion Gap 8 mmol/L; Blood Urea Nitrogen 10 mg/dL (7-17); Calcium 8.4 mg/dL (8.4-10.2); Carbon Dioxide 20 mmol/L (22-30); Chloride 103 mmol/L (98-107); Glucose 424 mg/dL (74-99); Lipase 400 U/L (23-300); Non-African American GFR(CKD) >90 (>60 ml/min/1.73 sqM); Sodium 131 mmol/L (137-145); Total Bilirubin 3.3 mg/dL (0.2-1.3); Total Protein 6.7 g/dL (6.3-8.2)
[2022-02-01 13:53] LABS: Basophils % (A) 0 %; Eosinophils # (A) 0.1 k/uL (0-0.7); Eosinophils % (A) 2 %; HCT 41.6 % (34.0-46.0); HGB 13.8 gm/dL (11.4-16.0); Lymphocytes # (A) 0.6 k/uL (1.0-4.8); Lymphocytes % (A) 9 %; MCV 93.8 fL (80.0-100.0); Mean Platelet Volume 7.6; Monocytes # (A) 0.4 k/uL (0-1.0); Monocytes % (A) 7 %; Neutrophils # (A) 5.2 k/uL (1.3-7.7); Neutrophils % (A) 81 %; RBC 4.44 m/uL (3.80-5.40); WBC 6.5 k/uL (3.8-10.6)
[2022-02-01 14:11] LABS: Platelet Count 70 k/uL (150-450)
--- NOTE | 2022-02-01 15:12 | CT ---
EXAMINATION TYPE: CT abdomen pelvis w con DATE OF EXAM: 02/01/2022 COMPARISON: CT dated 12/09/2018 HISTORY: Right lower quadrant pain, possible acute appendicitis CT DLP: 2737 mGycm Automated exposure control for dose reduction was used. TECHNIQUE: Helical acquisition of images was performed from the lung bases through the pelvis. CONTRAST: Performed without Oral Contrast and with IV Contrast, patient injected with 100 mL of Isovue 300. FINDINGS: LUNG BASES: No significant abnormality is appreciated. LIVER/GB: Cirrhotic hepatic changes. Previous cholecystectomy. No definite hepatic focal lesion. PANCREAS: No significant abnormality is seen. SPLEEN: Enlarged measuring 15.8 cm. ADRENALS: No significant abnormality is seen. KIDNEYS: Focal cortical defect seen at the posterior aspect of the right kidney likely related to seq uela of previous infarct/infection. Simple cyst is seen at the midpole of the left kidney measuring u p to 2 cm. Unremarkable kidneys otherwise. FREE AIR: No free air is visualized. RETROPERITONEAL ADENOPATHY: None visualized REPRODUCTIVE ORGANS: Previous hysterectomy. No gross adnexal mass. URINARY BLADDER: No significant abnormality is seen. PELVIC ADENOPATHY: No pathologically enlarged pelvic lymph nodes. OSSEOUS STRUCTURES: Previous lumbosacral fixation. Degenerative changes of the lower thoracic and kellie mbar spine. No aggressive bone lesion. BOWEL: Markedly thickened inferior aspect of the esophagus with large gastroesophageal varices. Unre markable nondistended stomach, duodenum and small bowel. Slightly thickened cecum with edematous righ t hemicolon demonstrating fat infiltration which could be related to chronic colitis. Normal diameter of the appendix with no CT evidence of acute appendicitis. OTHER: Small amount of free abdominal fluid seen mainly in the paracolic gutters. Slightly prominent viktoriya hepatis, portacaval and peripancreatic lymph nodes, nonspecific. Diffuse mesenteric fat strandi ng and congestion mesenteric vessels which could be related to portal hypertension. Peritonitis canno t be excluded. IMPRESSION: Normal diameter of the appendix with no convincing evidence of acute appendicitis. Slightly thickened cecum with edematous right hemicolon demonstrating fat infiltration which could be related to chroni c colitis. Acute on top of chronic colitis cannot be excluded. Cirrhotic hepatic changes, splenomegaly and signs of portal hypertension with large gastroesophageal varices as described above. Other incidental findings as described above.
[2022-02-01 15:51] LABS: Glucose,Whole Blood 351 mg/dL (75-99)
[2022-02-01] MEDS ORDERED: INSULIN ASPART (NovoLOG) 100 UNIT/ML VIAL SQ ONE (15:58)
[2022-02-01 16:47] LABS: Glucose,Whole Blood 364 mg/dL (75-99)
[2022-02-01] MEDS ORDERED: SODIUM CHLORIDE 0.9% 500 ML 500 ML IV STA (16:54)
[2022-02-01] MEDS ORDERED: INSULIN REGULAR 100 UNIT/ML VIAL (IV) IV ONE (16:54)
[2022-02-01 18:08] LABS: Glucose,Whole Blood 296 mg/dL (75-99)
[2022-02-01 18:49] VITALS: BP 126/79; PULSE 106; TEMP 98.7
--- NOTE | 2022-02-01 18:52 | ED ---
Medical Decision Making - Lab Data Result diagrams: 02/01/22 13:10 02/01/22 13:10 Lab Results 02/01/22 02/01/22 02/01/22 Range/Units 13:10 13:10 15:49 WBC 6.5 (3.8-10.6) k/uL RBC 4.44 (3.80-5.40) m/uL Hgb 13.8 (11.4-16.0) gm/dL Hct 41.6 (34.0-46.0) % MCV 93.8 (80.0-100.0) fL MCH 31.0 (25.0-35.0) pg MCHC 33.0 (31.0-37.0) g/dL RDW 14.0 (11.5-15.5) % Plt Count 70 L (150-450) k/uL MPV 7.6 Neutrophils % 81 % Lymphocytes % 9 % Monocytes % 7 % Eosinophils % 2 % Basophils % 0 % Neutrophils # 5.2 (1.3-7.7) k/uL Lymphocytes # 0.6 L (1.0-4.8) k/uL Monocytes # 0.4 (0-1.0) k/uL Eosinophils # 0.1 (0-0.7) k/uL Basophils # 0.0 (0-0.2) k/uL Manual Slide Review Performed Sodium 131 L (137-145) mmol/L Potassium 4.0 (3.5-5.1) mmol/L Chloride 103 (98-107) mmol/L Carbon Dioxide 20 L (22-30) mmol/L Anion Gap 8 mmol/L BUN 10 (7-17) mg/dL Creatinine 0.47 L (0.52-1.04) mg/dL Est GFR (CKD-EPI)AfAm >90 (>60 ml/min/1.73 sqM) Est GFR (CKD-EPI)NonAf >90 (>60 ml/min/1.73 sqM) Glucose 424 H (74-99) mg/dL POC Glucose (mg/dL) 351 H (75-99) mg/dL POC Glu Parts Sales Counterperson ID Cole, Priscilla Calcium 8.4 (8.4-10.2) mg/dL Total Bilirubin 3.3 H (0.2-1.3) mg/dL AST 44 H (14-36) U/L ALT 30 (4-34) U/L Alkaline Phosphatase 96 (38-126) U/L Total Protein 6.7 (6.3-8.2) g/dL Albumin 3.1 L (3.5-5.0) g/dL Lipase 400 H (23-300) U/L 02/01/22 02/01/22 Range/Units 16:45 18:06 WBC (3.8-10.6) k/uL RBC (3.80-5.40) m/uL Hgb (11.4-16.0) gm/dL Hct (34.0-46.0) % MCV (80.0-100.0) fL MCH (25.0-35.0) pg MCHC (31.0-37.0) g/dL RDW (11.5-15.5) % Plt Count (150-450) k/uL MPV Neutrophils % % Lymphocytes % % Monocytes % % Eosinophils % % Basophils % % Neutrophils # (1.3-7.7) k/uL Lymphocytes # (1.0-4.8) k/uL Monocytes # (0-1.0) k/uL Eosinophils # (0-0.7) k/uL Basophils # (0-0.2) k/uL Manual Slide Review Sodium (137-145) mmol/L Potassium (3.5-5.1) mmol/L Chloride (98-107) mmol/L Carbon Dioxide (22-30) mmol/L Anion Gap mmol/L BUN (7-17) mg/dL Creatinine (0.52-1.04) mg/dL Est GFR (CKD-EPI)AfAm (>60 ml/min/1.73 sqM) Est GFR (CKD-EPI)NonAf (>60 ml/min/1.73 sqM) Glucose (74-99) mg/dL POC Glucose (mg/dL) 364 H 296 H (75-99) mg/dL POC Glu Parts Sales Counterperson ID Kareem Garcia Brittni Calcium (8.4-10.2) mg/dL Total Bilirubin (0.2-1.3) mg/dL AST (14-36) U/L ALT (4-34) U/L Alkaline Phosphatase (38-126) U/L Total Protein (6.3-8.2) g/dL Albumin (3.5-5.0) g/dL Lipase (23-300) U/L Disposition Clinical Impression: Hyperglycemia, Portal hypertension, Colitis Disposition: HOME SELF-CARE Condition: Fair Instructions (If sedation given, give patient instructions): Portal Hypert ension (ED), Diabetic Hyperglycemia (ED), Colitis (ED) Prescriptions: HYDROcodone/APAP 5-325MG [[place] 5-325] 1 tab PO Q6HR PRN 3 Days #12 tab PRN Reason: Severe Pain Is patient prescribed a controlled substance at d/c from ED?: Yes If prescribed controlled substance>3 days was MAPS reviewed?: Prescribed <3 Days Referrals: Ashley Riggs MD [Primary Care Provider] - 1-2 days
== END 2022-02-01 18:51 | disposition home or self-care (01) ==
LOC: EC 12:45
DX: K52.9 Noninfective gastroenteritis and colitis, unspecified (principal); K76.6 Portal hypertension; E11.65 Type 2 diabetes mellitus with hyperglycemia; Z88.1 Allergy status to other antibiotic agents; Z90.49 Acquired absence of other specified parts of digestive tract; Z79.899 Other long term (current) drug therapy
CPT/HCPCS: 99284; 96374; 96375 ×2; 96376; 96361 ×2; 36415; 80053; 83690; 85025; 74177; J2270; J2405; Q9967